=== PATIENT | female | born 1940 | race Caucasian/White ===

== ENCOUNTER 2017-08-06 20:18 | Inpatient (IN) | payer BC, MEDICARE ==
[~2017-08-06] VITALS: Ht 157.5 cm; Wt 64.0 kg
[~2017-08-06 20:18] MED LIST: FLAGYL250 MG PO; LEVAQUIN500 MG PO; LEVOXYL50 MCG PO; LOMOTIL TABLET1 EACH OD; LORTAB 5-500 T1 EACH; NORCO 10-325 T1 EACH PO; PEPCID20 MG; PRIMROSE PO; TOPAMAX25 MG PO; ZOCOR5 MG PO; [UNRECOGNIZED DRUG - OTHER]
[2017-08-06] MEDS ORDERED: SODIUM CHLORIDE 0.9% 1000ML 1,000 ML IV STA (20:37)
[2017-08-06] MEDS ORDERED: ONDANSETRON HCL 4 MG ORAL DISINTEGRATING TAB PO ONE (20:45)
[2017-08-06] MEDS ORDERED: DICYCLOMINE HCL 20 MG/2 ML VIAL IM ONE (20:45)
[2017-08-06] MEDS ORDERED: DIATRIZOATE MEGL/DIATRIZOA SOD 30 ML BTL PO ONE (20:51)
[2017-08-06] MEDS ORDERED: ONDANSETRON HCL INJ 2 MG/ML VIAL IV STA (23:41)
[2017-08-07] MEDS ORDERED: ONDANSETRON HCL 4 MG ORAL DISINTEGRATING TAB ONE
[2017-08-07] MEDS ORDERED: SODIUM CHLORIDE 0.9% 1000ML 1,000 ML ONE (00:38)
[2017-08-07] MEDS ORDERED: SODIUM CHLORIDE 0.9% 1000ML 1,000 ML IV ONE ×2 (01:00→02:45)
--- NOTE | 2017-08-07 01:03 | Diagnostic Imaging Report ---
EXAM: CT Abdomen and Pelvis WITHOUT contrast INDICATION: Small bowel obstruction versus diverticulitis. COMPARISON: None. TECHNIQUE: Abdomen and pelvis were scanned utilizing a multidetector helical scanner from the lung base to the pubic symphysis without administration of IV contrast. Absence of intravenous contrast decreases sensitivity for detection of focal lesions and vascular pathology. Coronal and sagittal reformations were obtained. Routine protocol was performed. IV CONTRAST: None. ORAL CONTRAST: Gastrografin RADIATION DOSE: Total DLP: 257.08 mGy*cm Estimated effective dose: (DLP x 0.015 x size factor) mSv COMPLICATIONS: None FINDINGS: LINES and TUBES: None. LOWER THORAX: Moderate sliding hiatal hernia present. HEPATOBILIARY: No focal hepatic lesions. No biliary ductal dilation. GALLBLADDER: No radio-opaque stones or sludge. No wall thickening. SPLEEN: No splenomegaly. PANCREAS: No focal masses or ductal dilatation. ADRENALS: No adrenal nodules KIDNEYS/URETERS: No hydronephrosis. No cystic or solid mass lesions. No stones. GI TRACT: There is diffuse cerebral differential thickening of the mid, distal transverse colon, descending colon to the level of the sigmoid colon compatible with moderate to severe colitis. There are diverticula within the colon without evidence of diverticulitis. Appendix is not clearly identified. There is however no fat stranding or adenopathy in the right lower quadrant to suggest appendicitis. PELVIC ORGANS/BLADDER: Unremarkable. LYMPH NODES: No lymphadenopathy. VESSELS: There is moderate atherosclerotic disease in the aorta and major arterial branches. PERITONEUM / RETROPERITONEUM: No free air or fluid. BONES: There are degenerative changes in the lumbar spine. SOFT TISSUES: Unremarkable. IMPRESSION: 1. Findings are compatible with left-sided colitis, most likely infectious in the appropriate clinical setting. 2. Sigmoid colon diverticulosis without evidence of diverticulitis. 3. Moderate to large sliding hiatal hernia. Signed by: Dr. Jens Byrd M.D. on 08/07/2017 12:59 AM
[2017-08-07] MEDS ORDERED: ONDANSETRON HCL INJ 2 MG/ML VIAL IV PRN (01:45)
--- OUTSIDE RECORDS SUMMARY | 2017-08-07 01:55 | XMS REPORT ---
Author Author [facility] Address Unknown Phone Unavailable Care Team Providers Care Student Financial Aid Manager Name Role Phone MARIA DOLORES CARNEY Unavailable Unavailable Problems This patient has no known problems. Allergies, Adverse Reactions, Alerts This patient has no known allergies or adverse reactions. Medications This patient has no known medications. Results Test Description Test Time Test Comments Text Results Atomic Results Result Comments CT ABDOMEN/PELVIS WO 2017-08-07 00:49:00 [place] [address] Patient Name: YG FORTUNE MR #: [id number] : 1940 Age/Sex: 76/F Req #: [id number] Adm Physician: Ordered by: GIN HELMS MODELER Report #: [id number] Location: ER Room/Bed: ___ Procedure: CT/CT ABDOMEN/PELVIS WO Exam Date: 08/06/17 Exam Time: 2345 REPORT STATUS: Signed EXAM: CT Abdomen and Pelvis WITHOUT contrast INDICATION: Small bowel obstruction versus diverticulitis. COMPARISON: None. TECHNIQUE: Abdomen and pelvis were scanned utilizing a multidetector helical scanner from the lung base to the pubic symphysis without administration of IV contrast. Absence of intravenous contrast decreases sensitivity for detection of focal lesions and vascular pathology. Coronal and sagittal reformations were obtained. Routine protocol was performed. IV CONTRAST: None. ORAL CONTRAST: Gastrografin RADIATION DOSE: Total DLP: 257.08 mGy*cm Estimated effective dose: (DLP x 0.015 x size factor) mSv COMPLICATIONS: None FINDINGS: LINES and TUBES: None. LOWER THORAX : Moderate sliding hiatal hernia present. HEPATOBILIARY: No focal hepatic lesions. No biliary ductal dilation. GALLBLADDER: No radio-opaque stones or sludge. No wall thickening. SPLEEN: No splenomegaly. PANCREAS: No focal masses or ductal dilatation. ADRENALS: No adrenal nodules KIDNEYS/URETERS: No hydronephrosis. No cystic or solid mass lesions. No stones. GI TRACT: There is diffuse cerebral differential thickening of the mid, distal transverse colon, descending colon to the level of the sigmoid colon compatible with moderate to severe colitis. There are diverticula within the colon without evidence of diverticulitis. Appendix is not clearly identified. There is however no fat stranding or adenopathy in the right lower quadrant to suggest appendicitis. PELVIC ORGANS/BLADDER: Unremarkable. LYMPH NODES: No lymphadenopathy. VESSELS: There is moderate atherosclerotic disease in the aorta and major arterial branches. PERITONEUM / RETROPERITONEUM: No free air or fluid. BONES: There are degenerative changes in the lumbar spine. SOFT TISSUES: Unremarkable. IMPRESSION: 1. Findings are compatible with left-sided colitis , most likely infectious in the appropriate clinical setting. 2. Sigmoid colon diverticulosis without evidence of diverticulitis. 3. Moderate to large sliding hiatal hernia. Signed by: Dr. Jens Byrd M.D. on 08/07/2017 12:59 AM Dictated By: JENS ALSTON MD Transcribed By: MICAELA on 08/07/1758 COPY TO: GIN HELMS NP
[2017-08-07] MEDS ORDERED: LEVOFLOXACIN 500MG/D5W 100ML IV SCH (02:00)
[2017-08-07] MEDS: SODIUM CHLORIDE 0.9% 1000ML 1,000 ML IV SCH ×4 (02:00→20:30)
[2017-08-07] MEDS ORDERED: ACETAMINOPHEN 1000 MG/100 ML IV STA (02:19)
[2017-08-07] MEDS ORDERED: ACETAMINOPHEN 1000 MG/100 ML IV PRN (02:30)
[2017-08-07] MEDS: PIPER-TAZ 3.375 GM 50 ML IV SCH ×4 (03:59→22:17)
[2017-08-07 06:12] LABS: ALANINE AMINOTRANSFERASE 13 IU/L (0-55); BLOOD UREA NITROGEN 15 mg/dL (7-26); BUN/CREATININE RATIO 21 (6-25); CALCIUM 7.3 mg/dL (8.4-10.2); CARBON DIOXIDE 18 mmol/L (22-29); CHLORIDE 111 mmol/L (98-107); EST GLOMERULAR FILTRATION RATE > 60 ML/MIN (60-); GLUCOSE 125 mg/dL (74-118); SODIUM 136 mmol/L (136-145)
[2017-08-07 06:13] LABS: ALBUMIN 2.7 g/dL (3.5-5.0); ALBUMIN/GLOBULIN RATIO 1.2 (0.8-2.0); ALKALINE PHOSPHATASE 56 IU/L (40-150); AMYLASE 71 U/L (25-125); LIPASE 25 U/L (8-78)
[2017-08-07 06:51] LABS: BASOPHILS % 0.1 % (0.0-1.0); EOSINOPHILS % 0.1 % (0.0-6.0); HEMATOCRIT 33.4 % (34.2-44.1); HEMOGLOBIN 10.8 g/dL (12.0-16.0); LYMPHOCYTES # (AUTO) 1.3 (1.0-3.2); MEAN CORPUSCULAR HEMOGLOBIN 30.1 pg (28-32); MEAN CORPUSCULAR HGB CONC 32.3 g/dL (31-35); MONOCYTES % 4.6 % (4.4-11.3); NEUTROPHILS # (AUTO) 9.9 (2.1-6.9); NEUTROPHILS % 83.8 % (38.7-80.0); PLATELET COUNT 293 x10e3/uL (140-360); RED BLOOD COUNT 3.59 x10e6/uL (3.6-5.1); RED CELL DISTRIBUTION WIDTH 14.6 % (11.7-14.4)
[2017-08-07 06:52] LABS: MONOCYTES # (AUTO) 0.6 (0.2-0.8)
[2017-08-07 09:04] LABS: HEMATOCRIT 41.8 % (34.2-44.1); HEMOGLOBIN 13.2 g/dL (12.0-16.0); MEAN CORPUSCULAR HEMOGLOBIN 29.7 pg (28-32); MEAN CORPUSCULAR VOLUME 93.9 fL (81-99); RED BLOOD COUNT 4.45 x10e6/uL (3.6-5.1)
[2017-08-07 09:05] LABS: BASOPHILS % 0.2 % (0.0-1.0); CLARITY,URINE CLEAR (CLEAR); COLOR,URINE YELLOW (YELLOW); EOSINOPHILS # (AUTO) 0.1 (0.0-0.4); EOSINOPHILS % 0.6 % (0.0-6.0); LYMPHOCYTES # (AUTO) 1.6 (1.0-3.2); LYMPHOCYTES % 12.5 % (18.0-39.1); MEAN CORPUSCULAR HGB CONC 31.6 g/dL (31-35); MONOCYTES # (AUTO) 0.6 (0.2-0.8); MONOCYTES % 4.5 % (4.4-11.3); NEUTROPHILS # (AUTO) 10.2 (2.1-6.9); NEUTROPHILS % 81.9 % (38.7-80.0); PLATELET COUNT 289 x10e3/uL (140-360); RED CELL DISTRIBUTION WIDTH 14.7 % (11.7-14.4)
[2017-08-07 09:06] LABS: ANION GAP 14.3 mmol/L (8-16); BACTERIA,URINE FEW /HPF; BILIRUBIN,URINE NEGATIVE (NEGATIVE); BLOOD UREA NITROGEN 26 mg/dL (7-26); CARBON DIOXIDE 21 mmol/L (22-29); CHLORIDE 105 mmol/L (98-107); EPITHELIAL CELLS,URINE MODERATE /LPF; HYALINE CASTS 0-1 (0-1); KETONES,URINE 2+ (NEGATIVE); LEUKOCYTE ESTERASE ,URINE NEGATIVE (NEGATIVE); NITRITE,URINE NEGATIVE (NEGATIVE); POTASSIUM 4.3 mmol/L (3.5-5.1); PROTEIN,URINE DIPSTICK NEGATIVE (NEGATIVE); SODIUM 136 mmol/L (136-145); URINE UROBILINOGEN 0.2 mg/dL (0.2 - 1); WBC,URINE (MAN) 0-5 /HPF (0-5)
[2017-08-07 09:07] LABS: ALANINE AMINOTRANSFERASE 18 IU/L (0-55); BUN/CREATININE RATIO 30 (6-25); CALCIUM 9.3 mg/dL (8.4-10.2); CREATININE, SERUM 0.86 mg/dL (0.57-1.11); EST GLOMERULAR FILTRATION RATE > 60 ML/MIN (60-); GLUCOSE 124 mg/dL (74-118)
[2017-08-07 09:09] LABS: ALBUMIN 3.7 g/dL (3.5-5.0); ALBUMIN/GLOBULIN RATIO 1.2 (0.8-2.0); ALKALINE PHOSPHATASE 65 IU/L (40-150); CREATINE KINASE 85 IU/L (29-168)
[2017-08-07 09:10] LABS: LIPASE 111 U/L (8-78)
[2017-08-07 10:35] VITALS: BP 115/53
[2017-08-07 11:34] VITALS: BP 115/53
[2017-08-07 11:44] VITALS: BP 115/53
[2017-08-07 11:50] VITALS: BP 115/53
[2017-08-07] MEDS ORDERED: HYDROCODONE/APAP 10MG-325MG TAB PO PRN (14:45)
[2017-08-07] MEDS: DIPHENOXYLATE/ATROPINE TAB PO SCH ×2 (15:00→22:00)
[2017-08-07] MEDS: LEVOTHYROXINE SODIUM 50 MCG TAB PO SCH (15:19)
--- NOTE | 2017-08-07 15:24 | History and Physical ---
A 76-year-old female comes in with abdominal pain. HISTORY OF PRESENT ILLNESS: This is Ms. Purcell with a history of colitis, who was in her usual state of health until yesterday. The patient started to have nausea, vomiting and diarrhea, which was bloody. The patient came into the emergency room and was found to have colitis and also hypertension because of dehydration. The patient was admitted to the hospital and started on IV antibiotics. PAST MEDICAL HISTORY: History of hypothyroidism, history of chronic back pain, history of osteoarthritis, history of colitis. MEDICATIONS 1. Lomotil. 2. Hydrocodone. 3. [place] 10 per 325 mg q.6 h. 4. Levaquin 500 mg daily. 5. Levothyroxine 50 mcg daily. ALLERGIES: NKDA. FAMILY HISTORY: Noncontributory. SOCIAL HISTORY: No ETOH. No IV drug abuse. History of smoking in the past. PHYSICAL EXAMINATION GENERAL: The patient is alert and oriented times 3. HEENT: Normocephalic and atraumatic. Eyes are sunken. CV: S1 and S2 normal. Regular rate and rhythm. ABDOMEN: Soft. Mild tenderness in the lower abdomen. Also, tenderness in the suprapubic and the periumbilical area. BACK: Normal. SKIN: Dry. EXTREMITIES: No clubbing. No cyanosis. No edema. NEUROLOGIC: Alert and oriented times 3. She does have weakness. LABS: White count was 12,000 initially, hemoglobin of 13.2, hematocrit 41.8 with a left shift of 10.2 neutrophils. Chemistry: Sodium is 136, potassium 4.3, BUN , glucose is 124. Lipase is 111. Urine showed leukocyte esterase negative and nitrite is negative too. CT scan showed left-sided colitis, most likely infectious in her chronic setting. Sigmoid diverticulosis and moderate large sliding hiatal hernia. ASSESSMENT 1. Colitis. 2. Dehydration. PLAN: has been started. Will restart on her home medications for her hypothyroidism and also pain medicine will be withheld secondary to hypertension. She is on 125 mL of fluids. The patient will also get a PICC line secondary to her dehydration. Further recommendations per clinical course. Also, consult Dr. Zuleta, her advertising operations coordinator. Job#: [id number] JOSE
[2017-08-07 16:00] VITALS: BP 110/60
--- NOTE | 2017-08-07 17:10 | Diagnostic Imaging Report ---
PROCEDURE: A single AP view of the chest. COMPARISON: DX, CHEST SINGLE (PORTABLE), 08/31/2014, 7:37. INDICATIONS: POST RIGHT SIDE PICC LINE FINDINGS: See impression. IMPRESSION: 1. status post placement of right-sided PICC line, with distal tip projecting in the mid SVC. 2. Lungs are grossly clear. No consolidation or effusion. 3. Cardiac mediastinal silhouette is unremarkable. Pulmonary vasculature is normal. 4. No acute bony abnormalities. Fusion hardware is noted in the lower cervical spine. Tr Birch M.D. Dictated by: Tr Birch M.D. on 08/07/2017 at 17:12 Electronically approved by: Tr Birch M.D. on 08/07/2017 at 17:12
[2017-08-07] MEDS: KETOROLAC TROMETHAMINE 30 MG/ML VIAL IV PRN (17:26)
[2017-08-07 20:20] VITALS: BP 95/51
[2017-08-07] MEDS ORDERED: DIPHENOXYLATE/ATROPINE TAB PO SCH (22:00)
[2017-08-08] VITALS (8 sets, daily range): BP systolic 91–131; BP diastolic 44–60
[2017-08-08] MEDS: KETOROLAC TROMETHAMINE 30 MG/ML VIAL IV PRN ×2 (02:56→10:15)
[2017-08-08] MEDS: SODIUM CHLORIDE 0.9% 1000ML 1,000 ML IV SCH ×3 (03:00→18:36)
[2017-08-08] MEDS: PIPER-TAZ 3.375 GM 50 ML IV SCH ×3 (05:22→21:42)
[2017-08-08] MEDS: DIPHENOXYLATE/ATROPINE TAB PO SCH ×3 (05:22→21:42)
[2017-08-08] MEDS: LEVOTHYROXINE SODIUM 50 MCG TAB PO SCH (05:23)
[2017-08-08 05:41] LABS: BASOPHILS % 0.2 % (0.0-1.0); EOSINOPHILS # (AUTO) 0.2 (0.0-0.4); EOSINOPHILS % 2.1 % (0.0-6.0); HEMATOCRIT 33.3 % (34.2-44.1); HEMOGLOBIN 10.8 g/dL (12.0-16.0); LYMPHOCYTES # (AUTO) 2.1 (1.0-3.2); LYMPHOCYTES % 20.1 % (18.0-39.1); MEAN CORPUSCULAR HEMOGLOBIN 29.9 pg (28-32); MEAN CORPUSCULAR HGB CONC 32.4 g/dL (31-35); MEAN CORPUSCULAR VOLUME 92.2 fL (81-99); MONOCYTES # (AUTO) 0.6 (0.2-0.8); MONOCYTES % 5.4 % (4.4-11.3); NEUTROPHILS # (AUTO) 7.6 (2.1-6.9); NEUTROPHILS % 71.9 % (38.7-80.0); PLATELET COUNT 260 x10e3/uL (140-360); RED BLOOD COUNT 3.61 x10e6/uL (3.6-5.1); RED CELL DISTRIBUTION WIDTH 14.9 % (11.7-14.4)
[2017-08-08 06:05] LABS: ALANINE AMINOTRANSFERASE 11 IU/L (0-55); ALBUMIN 2.6 g/dL (3.5-5.0); ALBUMIN/GLOBULIN RATIO 1.1 (0.8-2.0); ALKALINE PHOSPHATASE 54 IU/L (40-150); AMYLASE 35 U/L (25-125); ANION GAP 8.4 mmol/L (8-16); BLOOD UREA NITROGEN 5 mg/dL (7-26); BUN/CREATININE RATIO 7 (6-25); CALCIUM 7.9 mg/dL (8.4-10.2); CARBON DIOXIDE 20 mmol/L (22-29); CHLORIDE 111 mmol/L (98-107); EST GLOMERULAR FILTRATION RATE > 60 ML/MIN (60-); GLUCOSE 87 mg/dL (74-118); LIPASE 10 U/L (8-78); POTASSIUM 3.4 mmol/L (3.5-5.1); SODIUM 136 mmol/L (136-145)
[2017-08-08] MEDS ORDERED: LEVOTHYROXINE SODIUM 50 MCG TAB PO SCH (09:00)
--- NOTE | 2017-08-08 11:55 | Consultation ---
DATE OF CONSULTATION: August 07, 2017 GASTROENTEROLOGY CONSULTATION REASON FOR CONSULT: Acute diarrhea with lower abdominal cramping for 1 day. HISTORY OF PRESENT ILLNESS: A 76-year-old very pleasant white female with a past medical history of chronic back pain, osteoarthritis, who got admitted with a 1-day history of acute onset of several bouts of diarrhea associated with lower abdominal cramping. The patient denies any recent exposure to antibiotics. No travel. Denies eating or drinking any contaminated food or liquid restrictively. She came to the emergency room earlier today. She was noted to be hemodynamically stable. Not orthostatic. Not tachycardic. Blood work revealed mild leukocytosis with white count of 12.51 with some left shift. CT scan of the abdomen showed diffuse colitis. The patient was started empirically on IV antibiotics and IV fluids. She got admitted. GI has been consulted for further evaluation and recommended. She denies any intestinal manifestations, such as ischemia, arthralgia or any oral lesions. REVIEW OF SYSTEMS: A 12-point system reviewed. Symptomatology is limited to GI system. PAST MEDICAL HISTORY: Hypothyroidism, chronic backache, osteoarthritis, history of colitis in the past. PAST SURGICAL HISTORY: She has had a colonoscopy by Dr. Zuleta (my associate) 3 years ago. At that time, she had some polyps removed. As per the patient, the next colonoscopy was advised to get done in 3-5 years. FAMILY HISTORY: Negative for any inflammatory bowel disease. 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 SOCIAL HISTORY: No smoking, alcohol or any illicit drug use. She is a former smoker. Quit smoking in the remote past. ALLERGIES: CEPHALEXIN, LEVOFLOXACIN, METRONIDAZOLE, AND MORPHINE. HOME MEDICATIONS: Lomotil, hydrocodone, [place], and levothyroxine. INPATIENT MEDICATIONS: List reviewed. PHYSICAL EXAMINATION VITAL SIGNS: Temperature 99.8, pulse 60, respirations 18, blood pressure 110/60, oxygen saturation 99% on room air. GENERAL: Not in any acute distress. HEENT: Moist mucous membranes. Anicteric sclerae. No oral lesions. CV: S1 and S2 regular. LUNGS: Bilaterally grossly clear. ABDOMEN: Soft and nondistended. Lower quadrant tenderness on deep palpation without rebound, rigidity or guarding. Bowel sounds hyperactive. EXTREMITIES: Warm. No leg edema. LABS: WBC has come down to 11.84 from 12.51, hemoglobin 10.8, hematocrit 33.4, and platelet count 293,000. Sodium 136, potassium 4, chloride 111, bicarb 18, BUN 15, creatinine 0.7. Liver enzymes normal. Chest x-ray showed right-sided PICC line. Lungs clear. Cardiac as well as mediastinal silhouette unremarkable. Pulmonary vasculature normal. No acute bony abnormalities. Fusion hardware is noted in the lower cervical spine. CT of the abdomen without IV contrast, but oral contrast showed findings compatible with left-sided colitis, most likely infectious in etiology. Sigmoid diverticulosis without diverticulitis. Moderate to large sliding hiatal hernia. IMPRESSION: Acute onset of diarrhea for 1 day. This is infectious until proven otherwise. This is colitis and is self-limiting. PLAN: Stool studies. However, diarrhea has already improved. The patient has not had any bowel movement since this afternoon. Stool studies should include wbcs, culture, C. diff. Supportive care with IV fluids. This colitis seems to be self-limiting. Therefore, would not recommend to give any antibiotics. Elective outpatient colonoscopy if due at this time. I thank Dr. Scott for allowing me to participate in the care of this patient. Job#: [id number] JOSE
[2017-08-09] VITALS (8 sets, daily range): BP systolic 102–132; BP diastolic 51–60
[2017-08-09] MEDS: SODIUM CHLORIDE 0.9% 1000ML 1,000 ML IV SCH ×5 (00:56→20:56)
[2017-08-09] MEDS: LEVOTHYROXINE SODIUM 50 MCG TAB PO SCH (05:44)
[2017-08-09] MEDS: DIPHENOXYLATE/ATROPINE TAB PO SCH ×3 (05:44→21:29)
[2017-08-09] MEDS: PIPER-TAZ 3.375 GM 50 ML IV SCH ×3 (05:44→21:29)
[2017-08-09] MEDS: POTASSIUM CHLORIDE 20 MEQ TAB CR PO SCH (08:00)
[2017-08-09] MEDS ORDERED: ACETAMINOPHEN 325 MG TAB PO PRN (16:30)
[2017-08-09] MEDS: IBUPROFEN 200 MG TAB PO PRN (17:30)
[2017-08-10] VITALS (7 sets, daily range): BP systolic 114–144; BP diastolic 56–63
[2017-08-10] MEDS: SODIUM CHLORIDE 0.9% 1000ML 1,000 ML IV SCH ×2 (03:36→15:31)
[2017-08-10] MEDS: LEVOTHYROXINE SODIUM 50 MCG TAB PO SCH (05:12)
[2017-08-10] MEDS: PIPER-TAZ 3.375 GM 50 ML IV SCH ×3 (05:12→21:17)
[2017-08-10] MEDS: DIPHENOXYLATE/ATROPINE TAB PO SCH ×3 (05:12→21:17)
[2017-08-10] MEDS: IBUPROFEN 200 MG TAB PO PRN (05:13)
[2017-08-10] MEDS: POTASSIUM CHLORIDE 20 MEQ TAB CR PO SCH (07:51)
[2017-08-10] MEDS: KETOROLAC TROMETHAMINE 30 MG/ML VIAL IV PRN (11:21)
[2017-08-11] VITALS: BP 122/58
[2017-08-11] MEDS: SODIUM CHLORIDE 0.9% 1000ML 1,000 ML IV SCH (02:35)
[2017-08-11 04:00] VITALS: BP 115/56
[2017-08-11] MEDS: LEVOTHYROXINE SODIUM 50 MCG TAB PO SCH (05:55)
[2017-08-11] MEDS: PIPER-TAZ 3.375 GM 50 ML IV SCH (05:55)
[2017-08-11] MEDS: DIPHENOXYLATE/ATROPINE TAB PO SCH (05:55)
[2017-08-11 07:48] VITALS: BP 121/59
[2017-08-11 07:48] LABS: BASOPHILS % 0.6 % (0.0-1.0); EOSINOPHILS # (AUTO) 0.4 (0.0-0.4); EOSINOPHILS % 5.1 % (0.0-6.0); HEMATOCRIT 38.4 % (34.2-44.1); HEMOGLOBIN 12.5 g/dL (12.0-16.0); LYMPHOCYTES % 29.4 % (18.0-39.1); MEAN CORPUSCULAR HEMOGLOBIN 29.7 pg (28-32); MEAN CORPUSCULAR HGB CONC 32.6 g/dL (31-35); MEAN CORPUSCULAR VOLUME 91.2 fL (81-99); MONOCYTES # (AUTO) 0.7 (0.2-0.8); MONOCYTES % 10.6 % (4.4-11.3); NEUTROPHILS # (AUTO) 3.7 (2.1-6.9); NEUTROPHILS % 53.7 % (38.7-80.0); PLATELET COUNT 310 x10e3/uL (140-360); RED BLOOD COUNT 4.21 x10e6/uL (3.6-5.1)
[2017-08-11 08:08] LABS: ANION GAP 11.8 mmol/L (8-16); BLOOD UREA NITROGEN 7 mg/dL (7-26); BUN/CREATININE RATIO 10 (6-25); CALCIUM 8.9 mg/dL (8.4-10.2); CARBON DIOXIDE 25 mmol/L (22-29); CHLORIDE 107 mmol/L (98-107); EST GLOMERULAR FILTRATION RATE > 60 ML/MIN (60-); GLUCOSE 90 mg/dL (74-118); POTASSIUM 3.8 mmol/L (3.5-5.1); SODIUM 140 mmol/L (136-145)
[2017-08-11 08:38] VITALS: BP 121/59
[2017-08-11] MEDS: POTASSIUM CHLORIDE 20 MEQ TAB CR PO SCH (09:02)
--- NOTE | 2017-08-11 10:52 | Progress Note ---
DATE: August 11, 2017 SUBJECTIVE: The patient is going to be discharged home today. Diarrhea has resolved. Reports no abdominal pain. No nausea or vomiting. REVIEW OF SYSTEMS GENERAL: No fever or chills. CVS: No chest pain or palpitation. RESPIRATORY: No cough or expectoration. MEDICATIONS: MAR reviewed. PHYSICAL EXAMINATION VITAL SIGNS: Temperature 97.7, pulse 62, respirations 19, blood pressure 121/59, oxygen saturation 94% on room air. GENERAL: Not in any acute distress. HEENT: Moist mucous membrane. Anicteric sclerae. No neck or axillary adenopathy. CVS: S1 and S2 regular. LUNGS: Bilaterally grossly clear. ABDOMEN: Soft, nondistended and nontender. No palpable mass or hernia. Positive bowel sound. EXTREMITIES: Warm. No leg edema. LABS: WBC 6.86, hemoglobin 12.5, hematocrit 38.4, MCV 91.2, and platelet count 310,000. Sodium 140, potassium 3.8, chloride 107, bicarbonate 25, BUN 7, creatinine 0.7. Liver enzymes normal. Stool culture negative. Stool O and P negative. C. difficile toxin negative. Stool lactoferrin positive. IMPRESSION: Gastroenterocolitis. This has resolved. Patient is off antibiotics. White count normalized. From a GI standpoint, the patient can be discharged home. She can follow up with her disc inspector, Dr. Zuleta in 1-2 weeks. Job#: [id number] JOSE
--- NOTE | 2017-09-10 01:49 | Discharge Summary ---
This patient came into the hospital for severe dehydration. The patient came in with abdominal pain, described as 10/10, severity as severe and the patient had laboratory test. The patient had also very low blood pressure. Hypotension was noted. White count was 12.1, segs of 81%. Chemistry showed mild base deficit of 21, mild hypocalcemia, amylase of 187. The patient was severely dehydrated. The patient was kept n.p.o. Fluids were started and the patient was also put on Zosyn 3.375 mg IV q.6 h. The patient IV fluids did improve the patient's BUN, creatinine. Her potassium was 3.4. Initially, her hemoglobin was 10.8. Colitis got better and white count came down to 10.5. Zosyn was continued. The patient was still trending hypotensive for the 1st couple of days with 102/50 with generalized weakness and inability to walk. The patient almost walked out of the bed and fell and so we kept the patient 1 more day with blood pressure of 102/53 and a temperature of 99. Blood culture was negative, O and P was negative and urine cultures were negative, but with the dehydration being severe and hypotensive episodes, the patient was kept inpatient and discharged home after 2 days. Fluids were cut down. The patient's white count had come back to being normal and the hemoglobin normalized too. The patient was discharged home. FINAL DIAGNOSES: 1. Severe dehydration. 2. Hypotension secondary to dehydration and volume depletion. 3. Severe abdominal pain with colitis. For further information look in the chart. For medicines on discharge look in the medical reconciliation sheet. The patient also has a history of mild pancreatitis and CT showed left sided colitis. DIEUDONNE WRIGHT MD Job#: [id number]
== END 2017-08-11 10:21 | disposition home or self-care (01) | DRG 392 ==
LOC: ER 20:18 → ERHOLD 08-07 01:52 → MED/SURG3 08-07 04:38 → EDBEDREQTM 08-07 05:07 → EDBEDREQSVC 08-07 05:07 → MED/SURG2 08-07 09:36
PROVIDERS: ADMIT Family Medicine; ATTEND Family Medicine
PROC: 02HV33Z Insertion of Infusion Device into Superior Vena Cava, Percutaneous Approach (ICD-10-PCS; principal; 2017-08-07)
DX: A09 Infectious gastroenteritis and colitis, unspecified (principal); G89.29 Other chronic pain; E03.9 Hypothyroidism, unspecified; Z79.52 Long term (current) use of systemic steroids; E86.0 Dehydration; K44.9 Diaphragmatic hernia without obstruction or gangrene; K57.30 Diverticulosis of large intestine without perforation or abscess without bleeding; I10 Essential (primary) hypertension; E87.6 Hypokalemia; Z87.891 Personal history of nicotine dependence; M43.22 Fusion of spine, cervical region
CPT/HCPCS: 36415; 36569; 71045; 74176; 80048; 80053; 81001; 82150; 82550; 82553; 83605; 83630; 83690; 83993; 84484; 85025; 87040; 87045; 87086; 87177; 87328; 87493; 99284; J0500; J1885; J1956; J2405; J2543; J7030

== ENCOUNTER 2018-01-30 10:45 | Inpatient (IN) | payer MEDICARE ==
[~2018-01-30] VITALS: Ht 157.5 cm; Wt 62.3 kg
[2018-01-30] MEDS ORDERED: CITRATE OF MAGNESIA 300ML BOTTLE PO ONE ×2 (11:15→16:00)
[2018-01-30] MEDS ORDERED: ASPIRIN 81 MG CHEW TAB PO ONE (11:15)
[2018-01-30] MEDS ORDERED: LACTULOSE SYRUP 20 GM/30 ML UDC PO ONE ×2 (11:15→16:00)
--- NOTE | 2018-01-30 12:55 | NUR ---
PATIENT BROUGHT BACK TO TRIAGE. BLOOD DRAWN FROM PIV PLACED PER EMS
[2018-01-30] MEDS ORDERED: ONDANSETRON HCL INJ 2 MG/ML VIAL IV STA (12:58)
[2018-01-30] MEDS ORDERED: ONDANSETRON HCL INJ 2 MG/ML VIAL ONE (13:00)
--- NOTE | 2018-01-30 13:03 | NUR ---
PATIENT REFUSING LACTULOSE AND MAGCITRATE. STATES, "IM ALREADY CLEANED OUT, I DON'T NEED ANYTHING ELSE TO CLEAN ME OUT". DR. JOSE ROY, SPOKE WITH PATIENT IN TRIAGE
--- NOTE | 2018-01-30 13:22 | Diagnostic Imaging Report ---
EXAM: ABDOMEN-1VIEW (KUB) DATE: 01/30/2018 11:08 AM INDICATION: Abdominal pain COMPARISON: CT scan 08/06/2017 FINDINGS: Nonobstructive bowel gas pattern with a moderate amount of retained feces in the colon. Scattered degenerative change about the bones. No suspicious calcifications are seen. IMPRESSION: Findings which could be due to constipation. Signed by: Dr. Oliverio Bunn M.D. on 01/30/2018 1:18 PM
--- NOTE | 2018-01-30 13:45 | NUR ---
PT MOVED TO ER RM 2 AND INSTRUCTED ON MEDS THAT ARE ORDERED TO BE GIVEN. PT STATED TO ME THAT SHE DID NOT WANT TO DRINK MEDS IN LOBBY BECAUSE SHE DID NOT WANT TO USE A PUBLIC RESTROOM. INFORMED PT ALL RESTROOMS IN ER ARE PUBLIC AND THAT WE COULD BRING IN A BEDSIDE COMMODE. PT UPSET AND STATED SHE DIDN'T WANT TO DO THAT EITHER. INFORMED DR. GARCIA AND PRISCILLA RN PRIMARY NURSE OF THIS.
[2018-01-30 14:39] LABS: ALANINE AMINOTRANSFERASE 9 IU/L (0-55); ALBUMIN 3.7 g/dL (3.5-5.0); ALBUMIN/GLOBULIN RATIO 1.1 (0.8-2.0); ALKALINE PHOSPHATASE 73 IU/L (40-150); ANION GAP 17.1 mmol/L (8-16); BLOOD UREA NITROGEN 19 mg/dL (7-26); BUN/CREATININE RATIO 25 (6-25); CALCIUM 10.1 mg/dL (8.4-10.2); CARBON DIOXIDE 23 mmol/L (22-29); CHLORIDE 106 mmol/L (98-107); CREATINE KINASE 41 IU/L (29-168); CREATININE, SERUM 0.75 mg/dL (0.57-1.11); EST GLOMERULAR FILTRATION RATE > 60 ML/MIN (60-); GLUCOSE 101 mg/dL (74-118); POTASSIUM 4.1 mmol/L (3.5-5.1); SODIUM 142 mmol/L (136-145)
[2018-01-30 15:23] LABS: BASOPHILS % 0.2 % (0.0-1.0); EOSINOPHILS % 0.1 % (0.0-6.0); HEMATOCRIT 45.3 % (34.2-44.1); HEMOGLOBIN 14.8 g/dL (12.0-16.0); LYMPHOCYTES # (AUTO) 1.4 (1.0-3.2); LYMPHOCYTES % 10.9 % (18.0-39.1); MEAN CORPUSCULAR HEMOGLOBIN 29.9 pg (28-32); MEAN CORPUSCULAR HGB CONC 32.7 g/dL (31-35); MEAN CORPUSCULAR VOLUME 91.5 fL (81-99); MONOCYTES # (AUTO) 0.7 (0.2-0.8); MONOCYTES % 5.2 % (4.4-11.3); NEUTROPHILS # (AUTO) 10.9 (2.1-6.9); NEUTROPHILS % 83.3 % (38.7-80.0); PLATELET COUNT 337 x10e3/uL (140-360); RED BLOOD COUNT 4.95 x10e6/uL (3.6-5.1); RED CELL DISTRIBUTION WIDTH 13.2 % (11.7-14.4)
[2018-01-30] MEDS ORDERED: SODIUM CHLORIDE 0.9% 1000ML 1,000 ML IV SCH (16:00)
--- NOTE | 2018-01-30 16:15 | NUR ---
MEDICATED PT ORDERED. PT SITTING UP IN BED DRINKING MAG CITRATE AND TOLERATING WELL.
[2018-01-30] MEDS ORDERED: METOCLOPRAMIDE HCL 10 MG/2ML VIAL ONE (18:39)
[2018-01-30] MEDS ORDERED: METOCLOPRAMIDE HCL 10 MG/2ML VIAL IV ONE (18:45)
--- NOTE | 2018-01-30 20:15 | Diagnostic Imaging Report ---
EXAM: CT Abdomen and Pelvis WITHOUT contrast INDICATION: ^ABD PAIN ^[id number] ^[id number] COMPARISON: CT dated 08/06/2017 TECHNIQUE: Abdomen and pelvis were scanned utilizing a multidetector helical scanner from the lung base to the pubic symphysis without administration of IV contrast. Absence of intravenous contrast decreases sensitivity for detection of focal lesions and vascular pathology. Coronal and sagittal reformations were obtained. Routine protocol was performed. IV CONTRAST: None ORAL CONTRAST: Water COMPLICATIONS: None RADIATION DOSE: Total DLP: 291.34 mGy*cm Estimated effective dose: (DLP x 0.015 x size factor) mSv CTDIvol has been reviewed. It is below the limits set by the Radiation Protocol Committee (RPC). FINDINGS: LINES and TUBES: None. LOWER THORAX: Unremarkable HEPATOBILIARY: Unenhanced liver is unremarkable. No biliary ductal dilation. GALLBLADDER: No radio-opaque stones or sludge. No wall thickening. SPLEEN: No splenomegaly. PANCREAS: No focal masses or ductal dilatation. ADRENALS: No adrenal nodules KIDNEYS/URETERS: No hydronephrosis. Limited for evaluation of renal parenchyma without intravenous contrast. No stones. GI TRACT: No abnormal distention, wall thickening, or evidence of bowel obstruction. Sigmoid diverticulosis. There is mild fat stranding along the descending colon in the left lower quadrant (series 2, image 50). Appendix is not visualized. Moderate size hiatal hernia. PELVIC ORGANS/BLADDER: Unremarkable. Hysterectomy. LYMPH NODES: No lymphadenopathy. VESSELS: Unremarkable. PERITONEUM / RETROPERITONEUM: No free air or fluid. BONES: Mild lumbar spine scoliosis with multilevel advanced degenerative changes. Grade 1 anterolisthesis of relation to L5. SOFT TISSUES: Unremarkable. IMPRESSION: 1. Mild fat stranding along the colon in left lower quadrant, concerning for mild left colitis. 2. Moderate size hiatal hernia. Signed by: Dr. Jamie Canchola MD on 01/30/2018 8:11 PM
[2018-01-30] MEDS ORDERED: SODIUM CHLORIDE 0.9% 1000ML 1,000 ML IV ONE (22:15)
[2018-01-30] MEDS ORDERED: HYDROMORPHONE 1MG/1ML INJ IV PRN (22:15)
[2018-01-30] MEDS ORDERED: DIPHENHYDRAMINE HCL INJ 50 MG/ML VIAL ONE (22:30)
[2018-01-30] MEDS: HYDROMORPHONE 2MG/ML 2 MG/ML ML IV PRN (22:37)
[2018-01-30] MEDS: PIPER-TAZ 3.375 GM 50 ML IV SCH (22:37)
[2018-01-30] MEDS: ONDANSETRON HCL INJ 2 MG/ML VIAL IV PRN (22:37)
[2018-01-30] MEDS ORDERED: LEVOTHYROXINE75 MCG PO (23:32)
[2018-01-30] MEDS ORDERED: TEMAZEPAM15 MG PO (23:32)
[2018-01-30] MEDS ORDERED: SUMATRIPTAN SUC50 MG PO (23:32)
[2018-01-31] VITALS (8 sets, daily range): BP systolic 97–140; BP diastolic 52–97
[2018-01-31] MEDS ORDERED: DIPHENHYDRAMINE HCL INJ 50 MG/ML VIAL IV ONE
--- NOTE | 2018-01-31 00:30 | NUR ---
PT ARRIVED @ THE UNIT FROM ER IN A STRETCHER WITH C/O ABD.PAIN.AAOX4.AMBULATORY.ASSESSMENT DONE.NO RESP.DISTRESS.PAIN VOICED @ L.ABDOMEN 07/10. PER REPORT IS AWARE OF THE CONSULTATION.ORIENTED THE PT TO THE UNIT.BED LOCKED AND IN LOWEST POSITION.BED ALARM ON.INSTRUCTED THE PT TO CALL NEEDED.
[2018-01-31] MEDS: HYDROMORPHONE 2MG/ML 2 MG/ML ML IV PRN ×2 (02:51→13:04)
[2018-01-31] MEDS: ONDANSETRON HCL INJ 2 MG/ML VIAL IV PRN ×3 (02:51→13:04)
[2018-01-31] MEDS: PIPER-TAZ 3.375 GM 50 ML IV SCH ×4 (04:12→21:45)
[2018-01-31] MEDS ORDERED: DIPHENHYDRAMINE HCL INJ 50 MG/ML VIAL IV PRN (06:45)
--- NOTE | 2018-01-31 06:50 | NUR ---
REPORT GIVEN TO THE ONCOMING RN.WALKING ROUNDS DONE.STABLE CONDITION.
[2018-01-31] MEDS: KETOROLAC TROMETHAMINE 30 MG/ML VIAL IV PRN (07:21)
[2018-01-31 07:23] LABS: BASOPHILS % 0.2 % (0.0-1.0); EOSINOPHILS % 0.3 % (0.0-6.0); HEMATOCRIT 39.8 % (34.2-44.1); HEMOGLOBIN 12.8 g/dL (12.0-16.0); LYMPHOCYTES % 22.1 % (18.0-39.1); MEAN CORPUSCULAR HEMOGLOBIN 29.9 pg (28-32); MEAN CORPUSCULAR HGB CONC 32.2 g/dL (31-35); MONOCYTES # (AUTO) 0.9 (0.2-0.8); MONOCYTES % 6.6 % (4.4-11.3); NEUTROPHILS # (AUTO) 9.6 (2.1-6.9); NEUTROPHILS % 70.4 % (38.7-80.0); PLATELET COUNT 339 x10e3/uL (140-360); RED BLOOD COUNT 4.28 x10e6/uL (3.6-5.1); RED CELL DISTRIBUTION WIDTH 13.5 % (11.7-14.4)
--- NOTE | 2018-01-31 07:25 | NUR ---
Received patient this morning, c/o nausea and epigastric pain, VSS, medicated with zofran, reported to attending who is going rounds at this time and to renew home meds and orders in place for Protonix, will monitor
[2018-01-31] MEDS: LEVOTHYROXINE SODIUM 75 MCG TAB PO SCH ×2 (07:30→08:14)
[2018-01-31 08:02] LABS: ALANINE AMINOTRANSFERASE 8 IU/L (0-55); ALKALINE PHOSPHATASE 59 IU/L (40-150); ANION GAP 13.9 mmol/L (8-16); BLOOD UREA NITROGEN 11 mg/dL (7-26); BUN/CREATININE RATIO 13 (6-25); CALCIUM 8.6 mg/dL (8.4-10.2); CARBON DIOXIDE 23 mmol/L (22-29); CHLORIDE 104 mmol/L (98-107); CREATININE, SERUM 0.82 mg/dL (0.57-1.11); EST GLOMERULAR FILTRATION RATE > 60 ML/MIN (60-); GLUCOSE 95 mg/dL (74-118); POTASSIUM 3.9 mmol/L (3.5-5.1); SODIUM 137 mmol/L (136-145)
[2018-01-31] MEDS: PANTOPRAZOLE 40 MG 10ML VIAL IV SCH (08:14)
--- NOTE | 2018-01-31 08:41 | History and Physical ---
REASON FOR ADMISSION: This patient comes in with abdominal pain and cramping. HISTORY OF PRESENT ILLNESS: This is Ms. Shira Purcell with a history of colitis in the past, was in her usual state of health until the morning. The patient woke up and had some abdominal cramping. She did ate some pineapple with some cream cheese and had diarrhea. After that, the patient continued to have diarrhea with cramping and abdominal pain. It was described as 10/10 in intensity and radiating to the back and the patient came to the emergency room, was given IV fluids. CT scan done, showed colitis and the patient admitted for antibiotic treatment, IV fluids, and also control of diarrhea. PAST MEDICAL HISTORY: History of hypothyroidism, history of migraines, history of insomnia, history of osteoarthritis, and history of hypertension. MEDICATIONS: Medicines she takes at home are; 1. Levothyroxine 75 mcg daily. 2. Sumatriptan 50 mg as needed. 3. Temazepam 15 mg as needed. SURGICAL HISTORY: History of partial hysterectomy, otherwise negative. REVIEW OF SYSTEMS: Negative for chest pain. No shortness of breath. Positive for some nausea. No vomiting. Positive for diarrhea. No constipation. No rectal bleeding. No hematochezia. No hematemesis. No blurry vision. No diplopia. No headache. SOCIAL HISTORY: No ETOH. No IV drug abuse. There is no history of smoking either. ALLERGIES: THE PATIENT IS ALLERGIC TO LEVAQUIN, METRONIDAZOLE, CEPHALEXIN, AND MORPHINE. PHYSICAL EXAMINATION GENERAL: Patient is alert and oriented x3, complains of some pruritus itching. Does complain of some cramping at this time. VITAL SIGNS: Temperature is 97.0, pulse of 83, blood pressure is 113/52, respirations of 20, SpO2 of 20. The patient is on Zosyn going at every 6 hours and IV fluids at 70 mL an hour. HEENT: Normocephalic, atraumatic. Pupils are reactive to light and accommodation. NECK: No JVD present. CVS: S1 and S2 normal. Regular rate and rhythm. ABDOMEN: Tender in the left lower quadrant. EXTREMITIES: No clubbing. No cyanosis. No edema. MUSCULOSKELETAL: Positive for arthritic changes throughout the entire joint system. LABORATORY VALUES: Initial sodium was 142, potassium was 4.1, BUN of 19, and creatinine of 0.75. White count was 13,000, hemoglobin 14.8, and hematocrit of 45.3. T bili was 0.3. IMAGING STUDIES: CT scan shows mild fat stranding along the colon in the left lower quadrant concerning for mild left colitis, moderate-sized hiatal hernia. ASSESSMENT 1. Colitis. 2. Abdominal pain. 3. Abdominal cramping. 4. Leukocytosis. PLAN: To continue patient on IV fluids. Patient is on Zosyn 3.375 q.6 hours, we will continue that. Pain control has been given by hydromorphone 0.5 mg q.6 hours and Tapazole for GI prophylaxis and also Zosyn for nausea. For the itching, we will give her some Benadryl and also Toradol if needed for pain control in addition to the hydromorphone. Further recommendations per clinical course. Dr. Carlos Rose has been consulted for GI. We will continue to monitor the patient and check her labs in the morning too. Job#: [id number] ASHLEY
--- NOTE | 2018-01-31 09:10 | NUR ---
Patient to bathroom and had large hematochezia, notifed Dr. Corral while still here and patient will have colonoscopy on Friday.
--- NOTE | 2018-01-31 09:28 | NUR ---
Consult to Dr. Corral and is here to see patient and will have possible colonoscopy on Friday
--- NOTE | 2018-01-31 09:42 | NUR ---
Rounds by Dr. Corral and orders to complete consent for Colonoscopy and start E-lyte 4000ml protocol tomorrow 02/01. Will follow
[2018-01-31] MEDS: SODIUM CHLORIDE 0.9% 1000ML 1,000 ML IV SCH ×2 (10:30→21:44)
[2018-01-31] MEDS ORDERED: SODIUM CHLORIDE 0.9% 1000ML 1,000 ML IV SCH (11:00)
--- NOTE | 2018-01-31 11:00 | NUR ---
Patient to bathroom and had another loose bloody stool, c/o feels like have a fever, checked temp and 97.3, BP low at 89/49, reported to attending and orders in place for lactic acid level and to bolus 1000mls and orders in place.
--- NOTE | 2018-01-31 12:33 | Consultation ---
DATE OF CONSULTATION: January 31, 2018 HISTORY: This is a 77-year-old who has a history of hypothyroidism, history of migraine, history of hypertension, presented to the hospital because of significant pain, which mainly is in the left lower quadrant area and described as cramping in nature, followed by some diarrhea and rectal bleeding. She said that she was having some constipations prior to the episodes. She has apparently similar episodes about 6 months or so ago and at that time she also had left-sided colitis again. Her workup at this time; she had leukocytosis, WBC about 13 and also CAT scan, which shows left-sided colitis again and moderate sized hiatal hernia. She did have some nausea, but no vomiting. OTHER MEDICAL PROBLEM: Significant for history of hypothyroidism, history of migraine, history of insomnia, history of muscle atrophy, history of hypertension. MEDICATIONS: At home including levothyroxine, sumatriptan, and temazepam. ALLERGIES: LEVAQUIN, FLAGYL, CEPHALEXIN, AND MORPHINE. SOCIAL HISTORY: No alcohol use. FAMILY HISTORY: Noncontributory. REVIEW OF SYSTEMS: Denies any chest pain. At this point, denies shortness of breath. Denies any dysphagia or odynophagia. Denies any dysuria, hematuria, or any syncopal episode. EXAM GENERAL: Patient is awake, alert, appeared to be stable, not in acute distress at this point. VITAL SIGNS: Afebrile currently with stable vital signs. HEAD, EYES, EARS, NOSE, AND THROAT: Normocephalic, atraumatic. Sclerae are anicteric NECK: Supple. HEART: Irregular. ABDOMEN: Soft. There is tenderness in the left upper quadrant. There is no rebound or mass. EXTREMITIES: No clubbing. LAB VALUES: Today, CMP is normal. WBC of 13.56, hemoglobin of 12.8. CAT scan shows evidence of left-sided colitis. IMPRESSION 1. Abdominal pain. Patient also had some bloody diarrhea and colitis with possibility of ischemic colitis. 2. History of chronic constipation. 3. History of hypothyroidism. RECOMMENDATIONS: Continue on antibiotic for now. Follow labs. We will proceed with colonoscopy probably on Friday and stay with liquid diet. Job#: [id number] MIGUEL ANGEL cc:DR. DIEUDONNE WRIGHT
--- NOTE | 2018-01-31 13:19 | NUR ---
CASE MANAGEMENT INITIAL ASSESSMENT Tool Grinding Machine Operator to bedside to discuss plan of care with patient/family. CM/SW role and care transitions discussed. Anticipated discharge plan discussed along with duration of care. CM/SW discussed patients right to make decisions in care. CM/SW work hours given. Patient lives: ALONE; APT ON FIRST FLOOR Admit/Transfer: FROM HOME TO THE ER POA/Emergency contact: SISTER; JAMAR DIEHL @ [phone] Current/Previous Home Health: NONE PCP/Follow-up Care: DR. WRIGHT; ATTENDING. CLAY IS OUTPT GI DOC; FOLLOWED BY MIKA AT [facility] Current/Previous DME: NONE Other Services: NONE Employment Status: RETIRED FROM [employer] Areas of Concerns: STATES HER INSURANCE DENIED HER LAST ADMISSION. STATES DR. WRIGHT APPEALED, BUT STILL REFUSED TO PAY BILL. STATES SOCIAL SECURITY SENT HER A LETTER STATING THE INSURANCE SHOULD COVER HER LAST STAY, BUT THEY MAY STILL HAVE TO APPEAL. Referral Needs: NONE Education Needs: DISCUSSED APPEALS PROCESS IMM/CORRALES given and signed (if applicable): PT TO BE CHANGED TO INPT. Goal for discharge: FIND OUT WHAT'S GOING ON W HER COLON. PT HAVING BRIGHT RED BLOOD FROM RECTUM. COLONOSCOPY SCHEDULED 02/02/18 CM/SW left business card at the bedside with contact information. Name and number was also written on the patients whiteboard. Patient verbalized understanding of discussion. CM will follow-up with ongoing discharge and transition of care needs.
--- NOTE | 2018-01-31 13:40 | NUR ---
Orders in place from attending to switch patient from OBs to inpatient.
--- NOTE | 2018-01-31 14:00 | NUR ---
Lactic acid level reported to MD and no orders
--- NOTE | 2018-01-31 20:09 | NUR ---
SPOKE TO DR. WRIGHT REGARDING PT TEMP AND C/O MIGRAINE. NEW ORDERS RCV. MD ALSO AWARE OF LACTIC ACID. MD ORDERED TO INCREASE IVF TO 120 MLS/HR, CBC AND BMP IN THE MORNING.
[2018-01-31] MEDS ORDERED: ACETAMINOPHEN 325 MG TAB PO PRN (20:15)
[2018-01-31] MEDS ORDERED: SUMATRIPTAN SUCCINATE 50 MG PO PRN (20:15)
[2018-01-31] MEDS: TEMAZEPAM 15 MG CAP PO SCH (21:00)
[2018-01-31] MEDS: SUMATRIPTAN SUCCINATE 25 MG TAB PO PRN (21:45)
[2018-02-01] VITALS (8 sets, daily range): BP systolic 95–128; BP diastolic 46–59
[2018-02-01] MEDS: PIPER-TAZ 3.375 GM 50 ML IV SCH ×4 (04:00→21:56)
[2018-02-01] MEDS: KETOROLAC TROMETHAMINE 30 MG/ML VIAL IV PRN (05:02)
[2018-02-01] MEDS: LEVOTHYROXINE SODIUM 75 MCG TAB PO SCH (05:31)
[2018-02-01 05:51] LABS: BASOPHILS # (AUTO) 0.1 (0.0-0.1); BASOPHILS % 0.3 % (0.0-1.0); EOSINOPHILS # (AUTO) 0.4 (0.0-0.4); EOSINOPHILS % 2.4 % (0.0-6.0); HEMATOCRIT 38.1 % (34.2-44.1); LYMPHOCYTES # (AUTO) 3.4 (1.0-3.2); LYMPHOCYTES % 22.8 % (18.0-39.1); MEAN CORPUSCULAR HEMOGLOBIN 29.5 pg (28-32); MEAN CORPUSCULAR HGB CONC 31.5 g/dL (31-35); MEAN CORPUSCULAR VOLUME 93.6 fL (81-99); MONOCYTES # (AUTO) 0.9 (0.2-0.8); MONOCYTES % 6.1 % (4.4-11.3); NEUTROPHILS # (AUTO) 10.2 (2.1-6.9); NEUTROPHILS % 67.9 % (38.7-80.0); PLATELET COUNT 300 x10e3/uL (140-360); RED BLOOD COUNT 4.07 x10e6/uL (3.6-5.1); RED CELL DISTRIBUTION WIDTH 13.8 % (11.7-14.4)
--- NOTE | 2018-02-01 05:55 | NUR ---
DR. WRIGHT DOING HIS ROUNDS. INFORMED MD REGARDING PT C/O RINGING IN EARS AFTER TAKING TYLENOL. NEW ORDER RCV.
[2018-02-01] MEDS ORDERED: IBUPROFEN 200 MG TAB PO PRN (06:00)
[2018-02-01 06:28] LABS: ANION GAP 8.7 mmol/L (8-16); BLOOD UREA NITROGEN 5 mg/dL (7-26); BUN/CREATININE RATIO 6 (6-25); CALCIUM 8.4 mg/dL (8.4-10.2); CARBON DIOXIDE 23 mmol/L (22-29); CHLORIDE 115 mmol/L (98-107); CREATININE, SERUM 0.87 mg/dL (0.57-1.11); EST GLOMERULAR FILTRATION RATE > 60 ML/MIN (60-); GLUCOSE 96 mg/dL (74-118); POTASSIUM 3.7 mmol/L (3.5-5.1); SODIUM 143 mmol/L (136-145)
[2018-02-01] MEDS: SODIUM CHLORIDE 0.9% 1000ML 1,000 ML IV SCH ×3 (06:35→23:37)
--- NOTE | 2018-02-01 06:42 | Progress Note ---
DATE: February 01, 2018 SUBJECTIVE: Patient comes with abdominal pain, diagnosed with colitis and possible ischemic colitis. She had a consult with Dr. Corral yesterday, possible thought of ischemic colitis. Patient also had low blood pressures, had to give her 1 liter of bolus yesterday and currently blood pressure is 96/51. Fluids are running at about 125 mL/hour. Patient is currently on Zosyn and fluids as mentioned and regular medications of levothyroxine and hydromorphone for pain. OBJECTIVE VITAL SIGNS: T-max 101.2, pulse of 64, blood pressure is 96/51, and SpO2 of 95%. GENERAL: Patient is alert and oriented x3, in pain. HEENT: Normocephalic, atraumatic. NECK: No JVD present. LUNGS: Clear to auscultation bilaterally. CARDIOVASCULAR: S1 and S2 normal. ABDOMEN: Tender in the left lower quadrant. No rebound tenderness. LABS: Pending for today, but yesterday's patient's lactic acid was 21.7 concerning sepsis. ASSESSMENT 1. Colitis, probably infectious versus ischemic colitis. I will continue with the antibiotics. She is on Zosyn right now. 2. Febrile illness. Continue with Tylenol or Motrin. 3. Hypertension from sepsis: Continue with IV fluids resuscitation and also antibiotics. For further information, look into the chart. Patient is currently proceeding for a colonoscopy tomorrow. Job#: [id number] JAYASHREE
--- NOTE | 2018-02-01 06:42 | NUR ---
INFORMED DR. WRIGHT OF WBC RESULT. NEW ORDER RCV FOR NORMAL SALINE 500ML BOLUS.
[2018-02-01] MEDS ORDERED: SODIUM CHLORIDE 0.9% 500ML 500 ML IV STA (06:44)
[2018-02-01] MEDS: PANTOPRAZOLE 40 MG 10ML VIAL IV SCH (07:50)
[2018-02-01] MEDS ORDERED: PEG (High)/E-LYTE SOLN 4,000 ML BTL PO NR (09:45)
[2018-02-01] MEDS ORDERED: BISACODYL 5 MG TAB EC PO NR (09:45)
[2018-02-01] MEDS: SUMATRIPTAN SUCCINATE 25 MG TAB PO PRN ×2 (10:10→17:29)
[2018-02-01] MEDS ORDERED: SODIUM CHLORIDE 0.9% 1000ML 1,000 ML IV SCH (11:00)
[2018-02-01] MEDS: TEMAZEPAM 15 MG CAP PO SCH (21:00)
[2018-02-02] VITALS (7 sets, daily range): BP systolic 101–127; BP diastolic 51–59
[2018-02-02] MEDS: LEVOTHYROXINE SODIUM 75 MCG TAB PO SCH (03:44)
[2018-02-02] MEDS: PIPER-TAZ 3.375 GM 50 ML IV SCH ×4 (03:44→21:07)
[2018-02-02] MEDS: SUMATRIPTAN SUCCINATE 25 MG TAB PO PRN (03:53)
[2018-02-02 05:42] LABS: BASOPHILS % 0.3 % (0.0-1.0); EOSINOPHILS # (AUTO) 0.5 (0.0-0.4); HEMATOCRIT 38.9 % (34.2-44.1); HEMOGLOBIN 12.8 g/dL (12.0-16.0); LYMPHOCYTES # (AUTO) 2.5 (1.0-3.2); LYMPHOCYTES % 22.1 % (18.0-39.1); MEAN CORPUSCULAR HGB CONC 32.9 g/dL (31-35); MEAN CORPUSCULAR VOLUME 91.3 fL (81-99); MONOCYTES # (AUTO) 0.7 (0.2-0.8); MONOCYTES % 6.3 % (4.4-11.3); NEUTROPHILS # (AUTO) 7.7 (2.1-6.9); PLATELET COUNT 293 x10e3/uL (140-360); RED BLOOD COUNT 4.26 x10e6/uL (3.6-5.1); RED CELL DISTRIBUTION WIDTH 13.5 % (11.7-14.4)
[2018-02-02 06:04] LABS: ANION GAP 12.3 mmol/L (8-16); BLOOD UREA NITROGEN < 5 mg/dL (7-26); BUN/CREATININE RATIO 7 (6-25); CALCIUM 8.9 mg/dL (8.4-10.2); CARBON DIOXIDE 24 mmol/L (22-29); CHLORIDE 111 mmol/L (98-107); CREATININE, SERUM 0.74 mg/dL (0.57-1.11); EST GLOMERULAR FILTRATION RATE > 60 ML/MIN (60-); GLUCOSE 86 mg/dL (74-118); POTASSIUM 3.3 mmol/L (3.5-5.1); SODIUM 144 mmol/L (136-145)
[2018-02-02] MEDS: SODIUM CHLORIDE 0.9% 1000ML 1,000 ML IV SCH ×3 (06:20→21:09)
--- NOTE | 2018-02-02 07:13 | Progress Note ---
DATE: February 02, 2018 The patient is here for colitis, sepsis and hypertension. The patient is doing better today. Had GoLYTELY to clean her out. Will have a colonoscopy today and scheduled for that. Currently, the patient is on Zosyn for sepsis and for colitis. Ibuprofen for pain control. The patient is also getting levothyroxine as needed and hydromorphone as needed for pain control. The patient also continues to have headache for which she gets sumatriptan for. OBJECTIVE VITAL SIGNS: Temperature is 99.2, T-max of 100, pulse of 80, respirations 20, blood pressure is 120/58, and pulse ox 99%. HEENT: Normocephalic and atraumatic. Pupils are reactive to light and accommodation. CV: S1 and S2 normal. Regular rate and rhythm. LUNGS: Clear to auscultation bilaterally. ABDOMEN: Tender in the left lower quadrant. No rebound. No surgical belly. EXTREMITIES: No clubbing. No cyanosis. No edema. LABORATORY VALUES: Today's white count has come down to 11,000 compared to yesterday at 15,000 still with a left shift of 7.7. Chemistry: Lactic acid was 21.7 on January 31, 2018. Potassium is 3.3, chloride 111 and creatinine 0.74. No further imaging studies have been done. ASSESSMENT 1. Colitis: Differential between infectious colitis versus ischemic colitis. The patient is going to have a colonoscopy today. Will continue with intravenous antibiotics at this time. 2. Sepsis: Currently, on antibiotics. Continue with the fluids and fluid resuscitation. 3. Hypertension, better. 4. History of hypothyroidism: Continue with hypothyroid medications. 5. Headache: Continue with sumatriptan as needed. Further recommendations depending on colonoscopy. The patient is scheduled for colonoscopy this morning. Job#: [id number] NM
--- NOTE | 2018-02-02 08:30 | NUR ---
ASSISTED TO GET OOB, BRUSH TEETH, CHANGE LINENS, STANDBY ASSIST BACK TO BED, CALL LIGHT WITHIN REACH Addendum: 02/02/18 at 1504 by Shavonne Bruce RN EMPTIED BS COMMODE, LIQUID STOOL NOTED CLEAR WITH GREEN SEDIMENT
[2018-02-02] MEDS: PANTOPRAZOLE 40 MG 10ML VIAL IV SCH (10:16)
--- NOTE | 2018-02-02 14:12 | NUR ---
WHEELED OFF UNIT VIA BED FOR COLONOSCOPY, NO CHANGE IN CONDITION, FAMILY AT SIDE
[2018-02-02] MEDS ORDERED: METOCLOPRAMIDE HCL 10 MG/2ML VIAL ONE (15:36)
--- NOTE | 2018-02-02 16:28 | NUR ---
BACK IN ROOM VIA BED, AAX3, RA, INTERMITTENT PAIN "GAS", CALL LIGHT WITHIN REACH
[2018-02-02] MEDS ORDERED: PROPOFOL IV EMULSION 10 MG/ML 20 ML VIAL ONE (18:42)
[2018-02-02] MEDS: TEMAZEPAM 15 MG CAP PO SCH (21:07)
[2018-02-03] VITALS (9 sets, daily range): BP systolic 107–136; BP diastolic 51–65
[2018-02-03] MEDS: SODIUM CHLORIDE 0.9% 1000ML 1,000 ML IV SCH ×3 (02:56→20:53)
[2018-02-03] MEDS: PIPER-TAZ 3.375 GM 50 ML IV SCH ×4 (04:02→20:53)
[2018-02-03] MEDS: LEVOTHYROXINE SODIUM 75 MCG TAB PO SCH (05:47)
[2018-02-03 06:04] LABS: BASOPHILS % 0.5 % (0.0-1.0); EOSINOPHILS # (AUTO) 0.4 (0.0-0.4); EOSINOPHILS % 5.3 % (0.0-6.0); HEMATOCRIT 36.2 % (34.2-44.1); LYMPHOCYTES # (AUTO) 2.4 (1.0-3.2); LYMPHOCYTES % 30.3 % (18.0-39.1); MEAN CORPUSCULAR HEMOGLOBIN 30.1 pg (28-32); MEAN CORPUSCULAR HGB CONC 33.1 g/dL (31-35); MEAN CORPUSCULAR VOLUME 90.7 fL (81-99); MONOCYTES # (AUTO) 0.7 (0.2-0.8); MONOCYTES % 8.5 % (4.4-11.3); NEUTROPHILS # (AUTO) 4.4 (2.1-6.9); PLATELET COUNT 306 x10e3/uL (140-360); RED BLOOD COUNT 3.99 x10e6/uL (3.6-5.1); RED CELL DISTRIBUTION WIDTH 13.5 % (11.7-14.4)
[2018-02-03 06:38] LABS: ANION GAP 12.2 mmol/L (8-16); BLOOD UREA NITROGEN 6 mg/dL (7-26); BUN/CREATININE RATIO 8 (6-25); CALCIUM 8.4 mg/dL (8.4-10.2); CARBON DIOXIDE 23 mmol/L (22-29); CHLORIDE 110 mmol/L (98-107); CREATININE, SERUM 0.76 mg/dL (0.57-1.11); EST GLOMERULAR FILTRATION RATE > 60 ML/MIN (60-); GLUCOSE 83 mg/dL (74-118); POTASSIUM 3.2 mmol/L (3.5-5.1); SODIUM 142 mmol/L (136-145)
--- NOTE | 2018-02-03 07:29 | Progress Note ---
DATE: February 03, 2018 Patient is status post colonoscopy. Finding of ischemic colitis discussed with Dr. Corral. Currently, able to tolerate a soft GI diet. Will continue with that. OBJECTIVE VITALS: Today, temperature is 99.3, pulse of 79, respiration of 18, pulse ox of 97% on room air. HEENT: Normocephalic, atraumatic. Pupils are reactive to light and accommodation. CVS: S1, S2 normal. Regular rate, rhythm. ABDOMEN: Less tender in the left lower quadrant. EXTREMITIES: No clubbing, no cyanosis, no edema. Changes of arthritis present. LABORATORY VALUES: Today, white count is down to 7.99, hemoglobin is 12.2, and hematocrit of 36.2. Chemistries are potassium of 3.2, chloride of 110, and sodium of 142. ASSESSMENT 1. Ischemic colitis. Patient is currently going to go up to soft gastrointestinal diet and tomorrow, probably a complete diet. If tolerating, the patient may be sent home. 2. Hyperkalemia. Replace potassium. 3. Sepsis, resolved. Will continue monitor the patient. Further recommendations per clinical course. Possible discharge tomorrow. Job#: [id number]
[2018-02-03] MEDS: PANTOPRAZOLE 40 MG 10ML VIAL IV SCH (09:45)
--- NOTE | 2018-02-03 12:08 | NUR ---
IMM SIGNED AND ON CHART COPY TO PT PT PLANS ON GOING HOME TOMORROW NO CONCERNS ABOUT DISCHARGE
--- NOTE | 2018-02-03 13:00 | NUR ---
OOB TO BR WITH STANDBY ASSIST, STANDBY ASSIST BACK TO BED, CALL LIGHT WITHIN REACH
[2018-02-03] MEDS ORDERED: LACTATED RINGER'S 1,000 ML ONE (13:49)
--- NOTE | 2018-02-03 18:51 | NUR ---
NO CHANGE IN CONDITION, CALL LIGHT WITHIN REACH
[2018-02-03] MEDS: TEMAZEPAM 15 MG CAP PO SCH (20:53)
[2018-02-04] VITALS: BP 115/54
[2018-02-04 00:35] VITALS: BP 128/58
[2018-02-04] MEDS: PIPER-TAZ 3.375 GM 50 ML IV SCH ×2 (04:14→09:13)
[2018-02-04] MEDS: LEVOTHYROXINE SODIUM 75 MCG TAB PO SCH (05:36)
[2018-02-04 06:38] VITALS: BP 121/58
--- NOTE | 2018-02-04 07:24 | NUR ---
Rcvd patient in report this am. patient is asleep in bed at this time. No s/s of distress noted
--- NOTE | 2018-02-04 07:25 | Progress Note ---
DATE: February 04, 2018 Patient is status post colonoscopy with the diagnosis of ischemic colitis. Doing well. No complaints. Patient is tolerating her diet without any problems. Had a bowel movement yesterday. VITAL SIGNS: Today, temperature is 96.3, pulse of 59, blood pressure is 121/58, pulse ox of 98%. MEDICATIONS: She is on 1. Levothyroxine 75. 2. Piperacillin/Zosyn q.6 h. 3. Patient is also on temazepam 50 mg nightly. 4. Pantoprazole 40 mg. 5. Imitrex 50 mg b.i.d. 6. Toradol as needed. ALLERGIES: , CEPHALEXIN, LEVAQUIN, METRONIDAZOLE, AND MORPHINE. EXAMINATION GENERAL: Patient is alert and oriented x3. HEENT: Normocephalic, atraumatic. Pupils are reactive to light and accommodation. CVS: S1, S2 normal. Regular rate, rhythm. ABDOMEN: Nontender, nondistended. EXTREMITIES: No clubbing, no cyanosis, no edema. LABORATORY VALUES: None today. White count had normalized. ASSESSMENT 1. Colitis, presumed ischemic. Patient will need computed tomography angiogram and possible cardiac catheterization in an outpatient basis. Will send her home on a soft mechanical diet and stay on it. Patient is advised with strict warnings and also, patient will be given Bactrim DS antibiotic for 5 more days. 2. Hypertension, hypothyroidism, which will continue the medication. Further recommendations per clinical course. Will continue monitor the patient as outpatient and possible do the test required as an outpatient. For further information, look in the chart. Medicines on discharge, please look in the medical reconciliation sheet. Job#: [id number]
[2018-02-04] MEDS ORDERED: ZOFRAN4 MG PO (07:50)
[2018-02-04] MEDS ORDERED: BACTRIM DS TAB1 EACH PO (07:50)
[2018-02-04 08:03] VITALS: BP 127/58
[2018-02-04] MEDS: SODIUM CHLORIDE 0.9% 1000ML 1,000 ML IV SCH (08:20)
--- NOTE | 2018-02-04 08:23 | NUR ---
IV removed at this time. Pressure dressing applied.
[2018-02-04] MEDS: PANTOPRAZOLE 40 MG 10ML VIAL IV SCH (09:00)
[2018-02-04 09:47] VITALS: BP 127/58
--- NOTE | 2018-02-04 09:50 | NUR ---
Patient discharged from facility to home. Patient assisted out via wheelchair. Reviewed all discharge paperwork, follow up appts and RX's given. Cut Out Worker discussed diet with patient. Patient verbalized understanding
== END 2018-02-04 09:50 | disposition home or self-care (01) | DRG 871 ==
LOC: ER 10:45 → ERHOLD 22:09 → MED/SURG 01-31 00:40 → OBSVTOIN 01-31 13:36
PROVIDERS: ADMIT Family Medicine; ATTEND Family Medicine
PROC: 0DBG8ZX Excision of Left Large Intestine, Via Natural or Artificial Opening Endoscopic, Diagnostic (ICD-10-PCS; principal; 2018-02-02 12:00)
DX: A41.9 Sepsis, unspecified organism (principal); K55.039 Acute (reversible) ischemia of large intestine, extent unspecified; K51.50 Left sided colitis without complications; E03.9 Hypothyroidism, unspecified; G47.00 Insomnia, unspecified; I10 Essential (primary) hypertension; R51 Headache; E87.5 Hyperkalemia; K64.8 Other hemorrhoids; K57.30 Diverticulosis of large intestine without perforation or abscess without bleeding; Z88.1 Allergy status to other antibiotic agents; Z88.5 Allergy status to narcotic agent; K44.9 Diaphragmatic hernia without obstruction or gangrene
CPT/HCPCS: 36415; 45380; 74018; 74176; 80048; 80053; 82550; 82553; 83605; 84484; 85025; 88305; 99284; G0378; J1200; J1885; J2405; J2543; J2765; J7030; J7040; J7120

== ENCOUNTER → 2018-03-12 | Outpatient (CLI) | payer MEDICARE ==
[~2018-03-12] MED LIST changes: +BACTRIM DS TAB1 EACH PO; +IOPAMIDOL 370 MG/ML 200 ML INFUS..BTL INJ ONE; +LEVOTHYROXINE75 MCG PO; +SODIUM CHLORIDE 0.9% 50ML 50 ML ONE; +SUMATRIPTAN SUC50 MG PO; +TEMAZEPAM15 MG PO; +ZOFRAN4 MG PO
[2018-03-12 08:19] LABS: BLOOD UREA NITROGEN 16 mg/dL (7-26); BUN/CREATININE RATIO 21 (6-25); CREATININE, SERUM 0.76 mg/dL (0.57-1.11); EST GLOMERULAR FILTRATION RATE > 60 ML/MIN (60-)
--- NOTE | 2018-03-12 10:15 | Diagnostic Imaging Report ---
EXAM: CTA OF THE ABDOMINAL AORTA AND PELVIC ARTERIES INDICATION: Concern for ischemic colitis COMPARISON: CT abdomen and pelvis without contrast 01/30/2018 TECHNIQUE: Multi-detector CT technology was employed. CTA of the abdomen and pelvis was performed after the administration of IV contrast. IV CONTRAST: 100 mL of Isovue-370 ORAL CONTRAST: None COMPLICATIONS: None For optimization of anatomic evaluation, multiplanar reconstruction, maximum intensity projections, and advanced 3-D off-line postprocessing were performed on a dedicated stand-alone workstation under the direct supervision of the interpreting physician. FINDINGS: Potential study limitations: None. VASCULAR WITH ADVANCED 3-D OFF-LINE POSTPROCESSING: The abdominal aorta is nonaneurysmal. There is mild calcified and noncalcified atherosclerotic plaque along the course of the abdominal aorta. The origins of the celiac axis and SMA are widely patent. There is suspected mild stenosis of the KACY origin. No filling defects are identified within the celiac trunk, SMA to the level of the proximal jejunal and colic branches, or KACY. No significant atherosclerotic plaque within the central visceral branches. Single bilateral main renal arteries with a small accessory left renal artery, all of which are patent. The bilateral common and external iliac arteries are widely patent. Internal iliac arteries and visceral branches are patent. Bilateral common femoral arteries and proximal superficial femoral and profundus femoris arteries are widely patent. LOWER CHEST: Mild bilateral lower lobe bronchiectasis. Large hiatal hernia, grossly unchanged relative to 01/30/2018. Calcified left lower lobe granuloma.. ABDOMEN: The liver, gallbladder and adrenal glands, and kidneys are unremarkable. Heterogeneity of splenic attenuation reflects arterial phase of scan. There is pancreatic ductal dilatation to a maximum of 5 mm without discrete mass lesion identified. PELVIS: Urinary bladder is unremarkable. Uterus is not identified and has presumably been removed. No adnexal mass. No ascites or pneumoperitoneum. The large bowel shows no distention or wall thickening. Inflammatory changes along the left colon described on the comparison examination have resolved. The appendix is not definitively identified. No small bowel dilatation to suggest obstruction. BONES: No osseous destructive lesions or focal soft tissue abnormalities. Degenerative disc changes and facet arthropathy of the lumbar spine. IMPRESSION: Atherosclerotic plaque results in mild inferior mesenteric arterial origin stenosis. Widely patent celiac axis and superior mesenteric artery origins and proximal visceral branches. No filling defects within the celiac axis, SMA, or KACY. Interval resolution of inflammatory changes along the left colon. Persistent sigmoid diverticulosis without evidence of diverticulitis. Mild pancreatic ductal dilatation is of uncertain etiology as no discrete mass lesion is identified. Further evaluation with MRCP is suggested. No intrahepatic biliary ductal dilatation. Large hiatal hernia. Signed by: Dr. Brandon Silva M.D. on 03/12/2018 10:11 AM
== END ==
LOC: CT 07:13
PROVIDERS: ATTEND Internal Medicine Interventional Cardiology
DX: K55.9 Vascular disorder of intestine, unspecified (principal)
CPT/HCPCS: 36415; 74174; 82565; 84520; Q9967

== ENCOUNTER 2019-12-06 12:58 | Emergency (ER) | payer MEDICARE ==
[~2019-12-06] VITALS: Ht 157.5 cm; Wt 62.1 kg
[~2019-12-06 12:58] MED LIST changes: -IOPAMIDOL 370 MG/ML 200 ML INFUS..BTL INJ ONE; -SODIUM CHLORIDE 0.9% 50ML 50 ML ONE
[2019-12-06] MEDS ORDERED: ONDANSETRON HCL INJ 2MG/ML 2ML 2 MG/ML VIAL ONE (13:43)
[2019-12-06] MEDS ORDERED: SODIUM CHLORIDE 0.9% 1000ML 1,000 ML ONE (13:43)
[2019-12-06] MEDS ORDERED: ONDANSETRON HCL INJ 2MG/ML 2ML 2 MG/ML VIAL IV STA ×2 (13:53→16:11)
--- NOTE | 2019-12-06 13:55 | NUR ---
notified of hypotension.
[2019-12-06] MEDS ORDERED: SODIUM CHLORIDE 0.9% 1000ML 1,000 ML IV SCH (14:00)
[2019-12-06] MEDS ORDERED: SODIUM CHLORIDE 0.9% 1000ML 1,000 ML IV STA (14:02)
[2019-12-06 14:11] LABS: BILIRUBIN,URINE NEGATIVE (NEGATIVE); CLARITY,URINE SL CLOUDY (CLEAR); COLOR,URINE YELLOW (YELLOW); KETONES,URINE NEGATIVE (NEGATIVE); LEUKOCYTE ESTERASE ,URINE TRACE (NEGATIVE); NITRITE,URINE NEGATIVE (NEGATIVE); PROTEIN,URINE DIPSTICK NEGATIVE (NEGATIVE); URINE UROBILINOGEN 0.2 mg/dL (0.2 - 1)
--- OUTSIDE RECORDS SUMMARY | 2019-12-06 14:16 | XMS REPORT | Continuity of Care Document ---
Author Author [facility] t Organization [facility] Address 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 Name Role Phone Jonathan WRIGHT MD PCP LALITO ELIZABETH Attphys Unavailable Jonathan PRUITT Attphys Unavailable Jonathan WRIGHT Attphys Unavailable Jonathan WRIGHT Admphys Unavailable Payers Payer Name Policy Type Policy Number Effective Date Expiration Date Jonathan Beltran Medicare Advantage [id number] 2017 00:00:00 [facility] Problems Condition Name Condition Details Condition Category Status Onset Date Resolution Date Last Treatment Date Treating Clinician Comments Source Colitis Colitis Problem Active [facility] Abdominal pain Abdominal pain Problem Active [facility] Allergies, Adverse Reactions, Alerts Allergy Name Allergy Type Status Severity Reaction(s) Onset Date Inacti ve Date Treating Clinician Comments Source morphine DA Active SV 2019-02-01 00:00:00 [facility] cephalexin DA Active SV 2019-02-01 00:00:00 [facility] Acetaminophen Propensity to adverse reactions Active Moderate R INGING IN EARS 2018-02-02 00:00:00 [facility] Morphine Allergy to Substance Active Moderate rash, welts 2018-01-30 00 :00:00 [facility] Cephalexin Allergy to Substance Active EARS RING, BAD TASTE IN MOUTH 2017-08-07 00:00:00 [facility] Metronidazole Allergy to Substance Active EARS RING, B AD TASTE IN MOUTH 2017-08-07 00:00:00 [facility] Levofloxacin Allergy to Substance Active Mild rash 2017-08-07 00:00:0 0 [facility] No Known Allergies DA Active U 2013-08-13 00:00:00 [facility] Medications Ordered Medication Name Filled Medication Name Start Date Stop Da te Current Medication? Ordering Clinician Indication Dosage Frequency Signature (SIG) Comments Components Source Levothyroxine Sodium 75 Mcg Tablet Levothyroxine Sodium 75 Mcg Tablet Yes 75 Daily [facility] Ondansetron Hcl (Zofran*) 4 Mg Tablet Ondansetron Hcl (Zofran*) 4 M g Tablet Yes 4 Every 6 Hours as needed for Nausea And V omiting [facility] Sulfamethoxazole/Trimethoprim (Bactrim Ds Tablet) 1 Ea ch Tablet Sulfamethoxazole/Trimethoprim (Bactrim Ds Tablet) 1 Each Tablet Yes 1 Twice A Day [facility] Sumatriptan Succinate 50 Mg Tablet Sumatriptan Succinate 50 Mg Tablet Yes 50 Twice A Day as needed for Migraine [facility] Temazepam 15 Mg Capsule Temazepam 15 Mg Capsule Yes 15 Bedtime [facility] Diphenoxylate Hcl/Atropine (Lomotil Tablet) 1 Each Tab let, 1 Tab Right Eye Diphenoxylate Hcl/Atropine (Lomotil Tablet) 1 Each Tablet, 1 Tab Right Eye 2018-01-30 00:00:00 No 1 Every 8 Hours for Di arrhea [facility] Hydrocodone Bit/Acetaminophen (Briggs 10-325 Tablet) 1 Each Tablet, 10 Mg Oral Hydrocodone Bit/Acetaminophen (Briggs 10-325 Tablet) 1 Each Tablet, 10 Mg Oral 2018-01-30 00:00:00 No 10 Every 6 Hours as nee ded for Prn [facility] Levothyroxine Sodium (Levoxyl) 50 Mcg Tablet, 50 Mcg O ral Levothyroxine Sodium (Levoxyl) 50 Mcg Tablet, 50 Mcg Oral 2018-01-30 00:00:00 No 50 Daily [facility] Levofloxacin (Levaquin) 500 Mg Tablet, 500 Mg Oral Lev ofloxacin (Levaquin) 500 Mg Tablet, 500 Mg Oral 2017-08-11 00:00:00 No 500 D aily [facility] Simvastatin (Zocor) 5 Mg Tablet, 5 Mg Oral Simvastatin (Zocor) 5 Mg Tablet, 5 Mg Oral 2015-10-20 00:00:00 No 5 Daily [facility] Topiramate (Topamax) 25 Mg Tablet, 10 Mg Oral Topirama te (Topamax) 25 Mg Tablet, 10 Mg Oral 2015-10-20 00:00:00 No 10 Twice A Day [facility] Anoro Ellepttheresa , Anoro Elleptia , 2014-05-05 00:00:00 No Daily [facility] [place] , Oral [place] , Oral 2014-05-05 00:00:00 No Daily [facility] Procedures Procedure Date / Time Performed Performing Clinician [facility] e Colonoscopy with biopsy 2018-02-02 00:00:00 YORDY CORRAL [facility] CT of abdomen and pelvis without contrast 2018-01-30 00:00:00 CARLOS PICKERING [facility] INSERTION OF INFUSION DEV INTO SUP VENA CAVA, PERC APPROACH 2017-08-07 00:00:00 TR HATFIELD [facility] CT of abdomen and pelvis without contrast 2017-08-06 00:00:00 GIN ABDI [facility] Encounters Start Date/Time End Date/Time Encounter Type Admission Type Attendi [facility] Facility Care Department Encounter ID Source 2018-01-31 13:36:00 2018-02-04 09:50:00 Discharged Inpatient 1 SONALCARLOS [facility] [id number] [facility] 2017-08-07 01:52:00 2017-08-11 10:21:00 Discharged Inpatient 1 DIEUDONNE WRIGHT [facility] [id number] [facility] Results Test Description Test Time Test Comments Results Result Comments Source SCR MAMM BILATERAL TABATHA CAD DIGITAL 2019-08-02 09:28:15 - SCR MAMM BILATERAL TABATHA CAD DIGITALBILATERAL DIGITAL SCREENING MAMMOGRAM 3D/2D WITH CAD: 08/02/2019CLINICAL: Asymptomatic. Digital breast tomosynthesis was performed in addition to routine CC and MLO views. Current mammographic images were evaluated by either a [employer] M-Vu or a [employer] CAD (computer aided detection system). Comparison is made to exams dated 06/18/2018 mammogram, 06/04 mammogram, and 06/30/2017 mammogram - [facility] There are scattered fibroglandular tissues in both breasts. There are benign calcifications in both breasts. There also is a benign intramammary node in the right breast. No suspicious mass, architectural distortion, malignant type calcification, or lymph node abnormality detected. Breast architecture is stable compared to prior exams.IMPRESSION: BENIGNThere is no mammographic evidence of malignancy. Resume annual screening mammography in one year. Evelyn Ellis M.D. cc/penrad:08/02/2019 09:28:15 Entry: - 020 09:47:31Imaging Technologist: Amairani Rider , [facility]-FWletter sent: BIRADS 1-2 Normal Mammogram BI-RADS: 2 Benign GASTRIC,BIOPSY 2019-02-08 18:04:00 RUN DATE: 02/08/19 [place] - Lab PAGE 1 RUN TIME: 1804 Specimen Inquiry RUN USER: INTERFACE PATIENT: YG FORTUNE LOC: NEAL U #: [id number] AGE/SX: 78/F ROOM: RE02/04/19[facility] DR: Yordy Corral : 44 BED: DIS: STATUS: [facility] TLOC: SPEC #: [id number] RECD: 02/05/19 STATUS: [facility] #: [id number] KEEGAN: 02/04/19153 [facility] DR: Yordy Corral MD ENTERED: 02/05/19 SP TYPE: GASTRIC BX OTHR DR: Dieudonne Wright MD ORDERED: GROSS COPIES TO: Yordy Corral MD [address], [address] [place] [address] Dieudonne Wright MD [address] [place], [place] [id number] PROCEDURES: GROSS (02/08/19-760) TISSUES: 1. GASTRIC ULCER - BX 2. ESOPHAGUS, NOS - BX CLINICAL HISTORY COLLECTION DATE: 02/04/19 PANCREAS MASS FINAL DIAGNOSIS Gastric ulcer, biopsy: GASTRIC MUCOSA WITH NO SIGNIFICANT ACUTE OR CHRONIC INFLAMMATORY INFILTRATE NO DISCRETE AREAS OF MUCOSAL EROSION/ULCERATION NEGATIVE FOR INTESTINAL METAPLASIA NEGATIVE FOR HELICOBACTER ORGANISMS NEGATIVE FOR MALIGNANCY Esophagus, biopsy: SQUAMOUS MUCOSA WITH ELONGATION OF SQUAMOUS PAPILLAE, FEW INTRAEPITHELIAL LYMPHOCYTES AND MILD BASAL CELL HYPERPLASIA NO INCREASED NUMBER OF INTRAEPITHELIAL EOSINOPHILS NO GLANDULAR EPITHELIUM PRESENT SUGGESTIVE OF REFLUX ESOPHAGITIS CONTINUED ON NEXT PAGE RUN DATE: 02/08/19 [place] [facility] PAGE 2 RUN TIME: 1804 Specimen Inquiry RUN USER: INTERFACE -------- ----SPEC #: [id number] PATIENT: YG FORTUNE MATT #[id number] (Continued) FINAL DIAGNOSIS (Continued) RRB/sm D [id number], [id number] MACROSCOPIC The first specimen is received in formalin, labeled with the patient's name, and identified as "gastric ulcer", and consists of umana biopsy tissue measuring 0.4 cm, submitted as (1). The second specimen is received in formalin, labeled with the patient's name, and identified as "esophagus bx", and consists of umana biopsy tissue measuring 0.3 cm, submitted as (2). GROSS PERFORMED AT [facility] [address] [place] [address] (p)[phone] MICROSCOPIC All of the stains, including any controls performed, stain appropriately. MICROSCOPIC PERFORMED AT [facility] [address] [place] [address] (p)[phone] PERFORMING SITE Diagnosis performed at: [facility] [address] [place] [address] Signed SIGNATURE ON FILE Young Blanca MD 02/08/19 1804 END OF REPORT BASIC METABOLIC PANEL 2019-02-01 13:32:00 Test Item SODIUM (test code = NA) 140 mmol/L 136-145 N POTASSIUM (test code = K) 4.5 mmol/L 3.5-5.1 N CHLORIDE (test code = CL) 105.0 mmol/L 98-107 N CARBON DIOXIDE (test code = CO2) 27.0 mmol/L 21-32 N ANION GAP (test code = GAP) 12.5 10-20 N GLUCOSE (test code = GLU) 101 mg/dL 74-106 N BLOOD UREA NITROGEN (test code = BUN) 23 mg/dL 7-18 H GLOMERULAR FILTRATION RATE (test code = GFR) > 60 mL/min >=60 Estimated GFR by using Modified MDRD formula.Chronic kidney disease is defined as either kidney damageor GFR <60 mL/min/1.73 m2 for >3 months. CREATININE (test code = CREAT) 0.70 mg/dL 0.55-1.02 N Note change in reference range due to change in reagent. BUN/CREATININE RATIO (test code = BUN/CREA) 31.4 10-20 H CALCIUM (test code = CA) 9.4 mg/dL 8.5-10.1 N BASIC METABOLIC [id number] 13:13:00* Test Item Value Reference Range Interpretation Comments SODIUM (test code = NA) 140 mmol/L 136-145 N POTASSIUM (test code = K) 4.5 mmol/L 3.5-5.1 N CHLORIDE (test code = CL) 105.0 mmol/L 98-107 N CARBON DIOXIDE (test code = CO2) mmol/L 21-32 ANION GAP (test code = GAP) 10-20 GLUCOSE (test code = GLU) mg/dL 74-106 BLOOD UREA NITROGEN (test code = BUN) mg/dL 7-18 GLOMERULAR FILTRATION RATE (test code = GFR) mL/min >=60 CREATININE (test code = CREAT) mg/dL 0.55-1.02 BUN/CREATININE RATIO (test code = BUN/CREA) 10-20 CALCIUM (test code = CA) mg/dL 8.5-10.1 DIAG MAMM LEFT TABATHA CAD [id number] 13:45:04 - DIAG MAMM LEFT TABATHA CAD DIGITALUNILATERAL LEFT DIGITAL DIAGNOSTIC MAMMOGRAM 3D/2D WITH CAD: 06/18/2018CLINICAL: Abnormal Mammogram. Digital breast tomosynthesis was performed in addition to routine CC and MLO views. Current mammographic images were evaluated by either a [employer] M-Vu or a [employer] CAD (computer aided detection system). Comparison is made to exams dated 06/04/2018 mammogram, 06/30/2017 mammogram, and 06/28/2016 mammogram - [facility]-. The tissue of the left breast is predominantly fatty. There are benign calc ifications in the left breast. There is a mass in the left breast at 12 o'clock , middle depth. This is seen in additional views. No other significant masses or calcifications are seen in the breast. INCOMPLETE ASSESSMENT: ADDITIONAL KACY GING EVALUATION RECOMMENDEDThe mass in the left breast is indeterminate. An ult rasound is recommended. Resume annual screening mammography in one year. - VIDAL AST ULTRASOUND LEFTULTRASOUND OF LEFT BREAST AND LEFT AXILLA: 06/18/2018Compariso n is made to exams dated 06/04/2018 mammogram, 06/30/2017 mammogram, and 06/28/2016 mammogram - [facility]-. Color flow, real-time, and Doppler ult rasound of the left breast and axilla were performed. Hector scale images of the real-time examination were reviewed. There is a benign round cyst in the left b reast at 12 o'clock middle depth. This round cyst is hypoechoic. This correlat es with mammography findings. No abnormalities were seen sonographically in the left breast or the left axilla. IMPRESSION: BENIGN There is no sonographic sanna dence of malignancy. The round cyst in the left breast is benign. Resume annua l screening mammography in one year. Anselmo Ordonez M.D. et/:06/18/2018 1 3:45:04 Entry: - 06/18/2018 16:36:02Imaging Technologist: Amairani BAY, [facility]-letter sent: BIRADS 1-2 Combo FU Letter Mamm ogram BI-RADS: 0 Indeterminate Ultrasound BI-RADS: 2 BenignBREAST ULTRASOUND [id number] 13:45:04 - DIAG MAMM LEFT TABATHA CAD DIGITALUNILATERAL LEFT DIGITAL DIAGNOSTIC MAMMOGRAM 3D/2D WITH CAD: 06/18/2018CLINICAL: Abnormal Mammogram. Digital breast tomosynthesis was performed in addition to routine CC and MLO views. Current mammographic images were evaluated by either a [employer] M-Vu or a [employer] Image[employer] CAD (computer aided detection system). Comparison is made to exams dated 06/04/2018 mammogram, 06/30/2017 mammogram, and [facility] The tissue of the left breast is predominantly fatty. There are benign calcifications in the left breast. There is a mass in the left breast at 12 o'clock, middle depth. This is seen in additional views. No other significant masses or calcifications are seen in the breast. INCOMPLETE ASSESSMENT: ADDITIONAL IMAGING EVALUATION RECOMMENDEDThe mass in the left breast is indeterminate. An ultrasound is recommended. Resume annual screening mammography in one year. - BREAST ULTRASOUND LEFTULTRASOUND OF LEFT BREAST AND LEFT AXILLA: 06/18/2018Comparison is made to exams dated 06/04/2018 mammogram, 06/30/2017 mammogram, and [facility]/28/[facility]. Color flow, real-time, and Doppler ultrasound of the left breast and axilla were performed. Hector scale images of the real-time examination were reviewed. There is a benign round cyst in the left breast at 12 o'clock middle depth. This round cyst is hypoechoic. This correlates with mammography findings. No abnormalities were seen sonographically in the left breast or the left axilla. IMPRESSION: BENIGN There is no sonographic evidence of malignancy. The round cyst in the left breast is benign. Resume annual screening mammography in one year. Anselmo Ordonez M.D. et/:06/18/2018 13:45:04 Entry: - 06/18/2018 16:36:02Imaging Technologist: Amairani Rider FW, [facility]-FWletter sent: BIRADS 1-2 Combo FU Letter Mammogram BI- RADS: 0 Indeterminate Ultrasound BI-RADS: 2 BenignSCR MAMM BILATERAL TABATHA CAD [id number] 17:50:49 - SCR MAMM BILATERAL TABATHA CAD DIGITALBILATERAL DIGITAL SCREENING MAMMOGRAM 3D/2D WITH CAD: 06/04/2018CLINICAL: Asymptomatic. Digital breast tomosynthesis was performed in addition to routine CC and MLO views. Current mammographic images were evaluated by either a [employer] M-Vu or a [employer] Image[employer] CAD (computer aided detection system). Comparison is made to exams dated 06/30/2017 mammogram, 06/28/2016 mammogram, and 05/24/2015 mammogram - [facility]-. The tissue of both breasts is predominantly fatty. There is a 4 mm oval mass with a circumscribed margin in the left breast, central to the nipple, middle depth, 6 cm from the nipple. No other significant masses, calcifications, or other findings are seen in either breast. IMPRESSION: INCOMPLETE ASSESSMENT: ADDITIONAL IMAGING EVALUATION RECOMMENDEDThe 4 mm oval mass in the left breast is indeterminate. Ultrasound with possible additional views are recommended. Libby Johnson D.O. al/:06/04/2018 17:50:49 Traffic Expert: Jaimie BAY, [facility]-FWletter sent: Additional Imaging Mammogram BI-RADS: 0 IndeterminateCTA ABD/[id number] 09:56:00 [place] [address] Patient Name: YG FORTUNE MR #: [id number] : 1940 Age/Sex: 77/F Req #: [id number] [facility] Physician: Ordered by: LALITO ELIZABETH MD Report #: [id number] Location: CT Room/Bed: Procedure: [id number] CT/ CTA ABD/PELVIS Exam Date: 03/12/18 Exam Time: 0915 REPORT STATUS: Signed EXAM: CTA OF THE ABDOMINAL AORTA AND PELVIC ARTERIES INDICATION: Concern for ischemic colitis COMPARISON: CT abdomen and pelvis without contrast 01/30/2018 TECHNIQUE: Multi-detector CT technology was employed. CTA of the abdomen and p peewee was performed after the administration of IV contrast. IV CONTRAST: 100 mL of Isovue-370 ORAL CONTRAST: None COMPLICATIONS: None For optimization of anatomic e valuation, multiplanar reconstruction, maximum intensity projections, and adva nced 3-D off-line postprocessing were performed on a dedicated stand-alone wor kstation under the direct supervision of the interpreting physician. F INDINGS: Potential study limitations: None. VASCULAR WITH ADVANCED 3-D OF F-LINE POSTPROCESSING: The abdominal aorta is nonaneurysmal. There is mild calcified and noncalcified atherosclerotic plaque along the course of the abdo cielo aorta. The origins of the celiac axis and SMA are widely patent. Ther e is suspected mild stenosis of the KACY origin. No filling defects are identif ied within the celiac trunk, SMA to the level of the proximal jejunal and coli c branches, or KACY. No significant atherosclerotic plaque within the cent ral visceral branches. Single bilateral main renal arteries with a small acces nehal left renal artery, all of which are patent. The bilateral common and external iliac arteries are widely patent. Internal iliac arteries and viscer al branches are patent. Bilateral common femoral arteries and proximal superfi cial femoral and profundus femoris arteries are widely patent. LOWER CHES T: Mild bilateral lower lobe bronchiectasis. Large hiatal hernia, grossly un changed relative to 01/30/2018. Calcified left lower lobe granuloma.. ABDOM EN: The liver, gallbladder and adrenal glands, and kidneys are unremarkable. Heterogeneity of splenic attenuation reflects arterial phase of scan. There is pancreatic ductal dilatation to a maximum of 5 mm without discrete mass lesion identified. PELVIS: Urinary bladder is unremarkable. Uterus is not identified and has presumably been removed. No adnexal mass. No asc ites or pneumoperitoneum. The large bowel shows no distention or wall thick ening. Inflammatory changes along the left colon described on the comparison e xamination have resolved. The appendix is not definitively identified. No smal l bowel dilatation to suggest obstruction. BONES: No osseous elenita tructive lesions or focal soft tissue abnormalities. Degenerative disc changes and facet arthropathy of the lumbar spine. 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 Widely pat ent celiac axis and superior mesenteric artery origins and proximal visceral b ranches. No filling defects within the celiac axis, SMA, or KACY. Interval resolution of inflammatory changes along the left colon. Persistent sigmoid d iverticulosis without evidence of diverticulitis. Mild pancreatic ductal di latation is of uncertain etiology as no discrete mass lesion is identified. Fu rther evaluation with MRCP is suggested. No intrahepatic biliary ductal dilata tion. Large hiatal hernia. Signed by: Dr. Adore iSlva M.D. on 2018 10:11 AM Dictated By: ADORE SILVA MD 1011 Transcribed By: MICAELA on 03/12/18 1011 COPY TO: LALITO ELIZABETH MD Sodium [id number] 06:41:00* Test Item Value Reference Range Interpretation Comments Sodium Level (test code = 2951-2) 142 136-145 [facility] [id number] 06:41:00* Test Item Value Reference Range Interpretation Comments Potassium Level (test code = 2823-3) 3.2 3.5-5.1 L [facility] HospitalChloride [id number] 06:41:00* Test Item Value Reference Range Interpretation Comments Chloride Level (test code = 2075-0) 110 98-107 H [facility] HospitalCarbon Dioxide [id number] 06:41:00* Test Item Value Reference Range Interpretation Comments Carbon Dioxide Level (test code = 2028-9) 23 22-29 [facility] HospitalAnion [id number] 06:41:00* Test Item Value Reference Range Interpretation Comments Anion Gap (test code = 72458-0) 12.2 8-16 [facility] HospitalBlood Urea [id number] 06:41:00* Test Item Value Reference Range Interpretation Comments Blood Urea Nitrogen (test code = 3094-0) 6 7-26 L [facility] HospitalCreatinine2018-12-04 06:41:00* Test Item Value Reference Range Interpretation Comments Creatinine (test code = 2160-0) 0.76 0.57-1.11 [facility] HospitalBUN/Creatinine [id number] 06:41:00* Test Item Value Reference Range Interpretation Comments BUN/Creatinine Ratio (test code = 3097-3) 8 6-25 [facility] HospitalEstimat Glomerular Filtration Rate 2018-02-03 06:41:00* Test Item Value Reference Range Interpretation Comments Estimat Glomerular Filtration Rate (test code = 034212035) > 60 >60 Ranges were taken from the National Kidney Disease Education Program and the [facility] literature.Reference ranges:60 or greater: Ebccoi13-36 ( for 3 consecutive months): Chronic kidney disease 15 or less: Kidney failureUniversity HospitalGlucose [id number] 06:41:00* Test Item Value Reference Range Interpretation Comments Glucose Level (test code = QXH3077) 83 74-118 [facility] HospitalCalcium Synkv3480-13-64 06:41:00* Test Item Value Reference Range Interpretation Comments Calcium Level (test code = 91659-6) 8.4 8.4-10.2 [facility] HospitalWhite Blood [id number] 06:11:00* Test Item Value Reference Range Interpretation Comments White Blood Count (test code = 6690-2) 7.99 4.8-10.8 [facility] HospitalRed Blood [id number] 06:11:00* Test Item Value Reference Range Interpretation Comments Red Blood Count (test code = 789-8) 3.99 3.6-5.1 [facility] HospitalHemoglobin2018-12-04 06:11:00* Test Item Value Reference Range Interpretation Comments Hemoglobin (test code = 19329-7) 12.0 12.0-16.0 [facility] HospitalHematocrit2018-12-04 06:11:00* Test Item Value Reference Range Interpretation Comments Hematocrit (test code = 4544-3) 36.2 34.2-44.1 [facility] HospitalMean Corpuscular Rtpnve7566-73-37 06:11:00* Test Item Value Reference Range Interpretation Comments Mean Corpuscular Volume (test code = 787-2) 90.7 81-99 [facility] HospitalMean Corpuscular Purqwyzszt2517-01-05 06:11:00* Test Item Value Reference Range Interpretation Comments Mean Corpuscular Hemoglobin (test code = 785-6) 30.1 28-32 [facility] Corp[facility] Hemoglobin Concent 2018-02-03 06:11:00* Test Item Value Reference Range Interpretation Comments Mean Corpuscular Hemoglobin Concent (test code = 786-4) 33.1 31-35 [facility] HospitalRed Cell Distribution Pxiyf4510-31-40 06:11:00* Test Item Value Reference Range Interpretation Comments Red Cell Distribution Width (test code = 16727-3) 13.5 11.7 -14.4 [facility] HospitalPlatelet Dbaqk0221-53-32 06:11:00* Test Item Value Reference Range Interpretation Comments Platelet Count (test code = 777-3) 306 140-360 [facility] HospitalNeutrophils (%) (Auto)2018-02-03 06:11:00 * Test Item Value Reference Range Interpretation Comments Neutrophils (%) (Auto) (test code = 41210-0) 55.0 38.7-80.0 [facility] HospitalLymphocytes (%) (Auto)2018-02-03 06:11:00 * Test Item Value Reference Range Interpretation Comments Lymphocytes (%) (Auto) (test code = 736-9) 30.3 18.0-39.1 [facility] HospitalMonocytes (%) (Auto)2018-02-03 06:11:00* Test Item Value Reference Range Interpretation Comments Monocytes (%) (Auto) (test code = 5905-5) 8.5 4.4-11.3 [facility] HospitalEosinophils (%) (Auto)2018-02-03 06:11:00 * Test Item Value Reference Range Interpretation Comments Eosinophils (%) (Auto) (test code = 713-8) 5.3 0.0-6.0 [facility] HospitalBasophils (%) (Auto)2018-02-03 06:11:00* Test Item Value Reference Range Interpretation Comments Basophils (%) (Auto) (test code = 706-2) 0.5 0.0-1.0 [facility] HospitalIM GRANULOCYTES %2018-02-03 06:11:00* Test Item Value Reference Range Interpretation Comments IM GRANULOCYTES % (test code = IM GRANULOCYTES %) 0.4 0.0- 1.0 [facility] HospitalNeutrophils # (Auto)2018-02-03 06:11:00* Test Item Value Reference Range Interpretation Comments Neutrophils # (Auto) (test code = 751-8) 4.4 2.1-6.9 [facility] HospitalLymphocytes # (Auto)2018-02-03 06:11:00* Test Item Value Reference Range Interpretation Comments Lymphocytes # (Auto) (test code = 32550-9) 2.4 1.0-3.2 [facility] HospitalMonocytes # (Auto)2018-02-03 06:11:00* Test Item Value Reference Range Interpretation Comments Monocytes # (Auto) (test code = 742-7) 0.7 0.2-0.8 [facility] HospitalEosinophils # (Auto)2018-02-03 06:11:00* Test Item Value Reference Range Interpretation Comments Eosinophils # (Auto) (test code = 711-2) 0.4 0.0-0.4 [facility] HospitalBasophils # (Auto)2018-02-03 06:11:00* Test Item Value Reference Range Interpretation Comments Basophils # (Auto) (test code = 704-7) 0.0 0.0-0.1 [facility] HospitalAbsolute Immature Granulocyte (auto 2018-02-03 06:11:00* Test Item Value Reference Range Interpretation Comments Absolute Immature Granulocyte (auto (eugenio t code = Absolute Immature Granulocyte (auto) 0.03 0-0.1 [facility] HospitalLactic Acid Dnotx0967-80-35 11:40:00* Test Item Value Reference Range Interpretation Comments Lactic Acid Level (test code = Lactic Acid Level) 21.7 4.5- 19.8 HH Results called to EFFIE MORA at 1139 on 01/31/18 by Sangeeta Hutson. RB [place]. [facility] Xfnnxlrha8864-46-51 08:03:00* Test Item Value Reference Range Interpretation Comments Total Bilirubin (test code = 1975-2) 0.7 0.2-1.2 [facility] HospitalAspartate Amino Transf (AST/SGOT) 2018-01-31 08:03:00* Test Item Value Reference Range Interpretation Comments Aspartate Amino Transf (AST/SGOT) (test code = Aspartate Amino Transf (AST/SGOT)) 15 5-34 [facility] HospitalAlanine Aminotransferase (ALT/SGPT) 2018-01-31 08:03:00* Test Item Value Reference Range Interpretation Comments Alanine Aminotransferase (ALT/SGPT) (test code = 1742-6) 8 0-55 [facility] Tcugzvu2933-76-61 08:03:00* Test Item Value Reference Range Interpretation Comments Total Protein (test code = 2885-2) 5.9 6.5-8.1 L [facility] HospitalAlbumin2018-12-01 08:03:00* Test Item Value Reference Range Interpretation Comments Albumin (test code = 1751-7) 3.0 3.5-5.0 L [facility] HospitalGlobulin2018-12-01 08:03:00* Test Item Value Reference Range Interpretation Comments Globulin (test code = 60213-1) 2.9 2.3-3.5 [facility] HospitalAlbumin/Globulin Qxitv8081-28-81 08:03:00 * Test Item Value Reference Range Interpretation Comments Albumin/Globulin Ratio (test code = 1759-0) 1.0 0.8-2.0 [facility] HospitalAlkaline Tlxvlndzrmh4038-81-83 08:03:00* Test Item Value Reference Range Interpretation Comments Alkaline Phosphatase (test code = 6768-6) 59 40-150 [facility] HospitalCT ABDOMEN/PELVIS PK1741-95-90 20:02:00 [place] [address] Patient Name: YG FORTUNE MR #: [id number] : 1940 Age/Sex: 77/F Req #: [id number] Adm Physician: Ordered by: CARLOS PRUITT MD Report #: [id number] Location: ER Room/Bed: Procedure: [id number] CT/CT ABDOMEN/PELVIS WO Exam Date: 01/30/18 Exam Silvio e: 1932 REPORT STATUS: Signed EX AM: CT Abdomen and Pelvis WITHOUT contrast INDICATION: ABD PAIN [id number] COMPARISON: CT dated 08/06/2017 TECHNIQUE: Abdomen and pelvi s were scanned utilizing a multidetector helical scanner from the lung base to the pubic symphysis without administration of IV contrast. Absence of intrave nous contrast decreases sensitivity for detection of focal lesions and vascula r pathology. Coronal and sagittal reformations were obtained. Routine protocol was performed. IV CONTRAST: None ORAL CONTRAST: Water COMPLICATIONS: None RADIATION DOSE: Total DLP: 291.34 mGy*cm Estimated effective dose: (DLP x 0.015 x size factor) mSv CTDIvol has been reviewed. It is below the limits set by the Radiation Protocol Committee (RPC). FINDINGS: LINES and TUBES: None. LOWER THORAX: Unrema rkable HEPATOBILIARY: Unenhanced liver is unremarkable. No biliary david jacinto dilation. GALLBLADDER: No radio-opaque stones or sludge. No wall th ickening. SPLEEN: No splenomegaly. PANCREAS: No focal masses or ducta l dilatation. ADRENALS: No adrenal nodules KIDNEYS/URETERS: No hydronephrosis. Limited for evaluation of renal parenchyma without intravenous contrast. No stones. GI TRACT: No abnormal distention, wall thickening, or evidence of bowel obstruction. Sigmoid diverticulosis. There is mild fat st randing along the descending colon in the left lower quadrant (series 2, image 50). Appendix is not visualized. Moderate size hiatal hernia. PELVIC ORG ANS/BLADDER: Unremarkable. Hysterectomy. LYMPH NODES: No lymphadenopathy. VESSELS: Unremarkable. PERITONEUM / RETROPERITONEUM: No free air or flu id. BONES: Mild lumbar spine scoliosis with multilevel advanced degenerativ e changes. Grade 1 anterolisthesis of relation to L5. SOFT TISSUES: Unrem arkable. IMPRESSION: 1. Mild fat stranding along the colon in left lower quadrant, concerning for mild left colitis. 2. Moderate size hiatal hernia. Signed by: Dr. Jamie Bernard MD on 01/30/2018 8:11 PM Dictated By: JAMIE BERNARD MD 10 Transcribed By: MICAELA on 01/30/182010 COPY TO: So PRUITT MD Creatine Kinase SZ4719-20-69 14:50:00* Test Item Value Reference Range Interpretation Comments Creatine Kinase MB (test code = 73869-6) 0.70 0-5.0 [facility] K4351-57-09 14:50:00* Test Item Value Reference Range Interpretation Comments Troponin I (test code = SLU5621) < 0.001 0-0.300 [facility] HospitalCreatine Rwisol5423-54-26 14:40:00* Test Item Value Reference Range Interpretation Comments Creatine Kinase (test code = 2157-6) 41 29-168 [facility] HospitalABDOMEN-[facility]VIEW ([facility]UB)2018-01-30 13:17:00 [facility] [address] [place] [address] Patient Name: YG FORTUNE MR #: [id number] : 1940 Age/Sex: 77/F Req #: [id number] Adm Physician: Ordered by: CARLOS PRUITT MD Report #: [id number] Location: ER Room/Bed: Procedure: [id number] DX/ABDOMEN-1VIEW ([facility]) Exam Date: 01/30/18 Exam Time : 1150 REPORT STATUS: Signed EXA M: ABDOMEN-1VIEW ([facility]) DATE: 01/30/2018 11:08 AM INDICATION: Abdominal pa in COMPARISON: CT scan 08/06/2017 FINDINGS: Nonobstructive bowel gas pat tern with a moderate amount of retained feces in the colon. Scattered degenera tive change about the bones. No suspicious calcifications are seen. IMPRE SSION: Findings which could be due to constipation. Signed by: Dr. Stefan Bunn M.D. on 01/30/2018 1:18 PM Dictated By: STEFAN BUNN MD, MD Elect ronically Signed By: STEFAN BUNN MD, MD on 01/30/181317 Transcribed By: ISABELLA WOODS on 01/30/181317 COPY TO: CARLOS PRUITT MD Stool Ghfvreujjayh7906-50-30 08:28:00* Test Item Value Reference Range Interpretation Comments Stool Calprotectin (test code = 61514-8) 285 0-120 H Results verified by repeat testingConcentration Interpretation Follow- Up<16 - 50 ug/g Normal None>50 -120 ug/g Borderline Re- evaluate in 4-6 weeks >120 ug/g Abnormal Repeat as clinically indicatedPerformed at: - [facility]Co[address] [id number] Director: Arnol Wilkins MD, Phone: [phone] HospitalBlood Bmrncyp1769-24-15 04:04:00* Test Item Value Reference Range Interpretation Comments Blood Culture (test code = 16666673) NO GROWTH AFTER 5 DAYS, FINAL REPORT [facility]odium Tywmh8709-42-12 08:09:00* Test Item Value Reference Range Interpretation Comments Sodium Level (test code = 2951-2) 140 136-145 [facility] HospitalPotassium Pkkuw3402-14-24 08:09:00* Test Item Value Reference Range Interpretation Comments Potassium Level (test code = 2823-3) 3.8 3.5-5.1 [facility] HospitalChloride Litkf1042-08-32 08:09:00* Test Item Value Reference Range Interpretation Comments Chloride Level (test code = 2075-0) 107 98-107 [facility] HospitalCarbon Dioxide Swcmi6519-00-45 08:09:00* Test Item Value Reference Range Interpretation Comments Carbon Dioxide Level (test code = 2028-9) 25 22-29 [facility] HospitalAnion Dtb6222-77-29 08:09:00* Test Item Value Reference Range Interpretation Comments Anion Gap (test code = 32377-4) 11.8 8-16 [facility] HospitalBlood Urea Qjgnlicv5451-65-78 08:09:00* Test Item Value Reference Range Interpretation Comments Blood Urea Nitrogen (test code = 3094-0) 7 7-26 [facility] HospitalCreatinine2018-06-11 08:09:00* Test Item Value Reference Range Interpretation Comments Creatinine (test code = 2160-0) 0.70 0.57-1.11 [facility] HospitalBUN/Creatinine Vdofh0482-59-80 08:09:00* Test Item Value Reference Range Interpretation Comments BUN/Creatinine Ratio (test code = 3097-3) 10 6-25 [facility] HospitalEstimat Glomerular Filtration Rate 2017-08-11 08:09:00* Test Item Value Reference Range Interpretation Comments Estimat Glomerular Filtration Rate (test code = 00318-1) 60- >60 Ranges were taken from the National Kidney Disease Education Program and the [facility] literature.Reference ranges:60 or greater: Kpuzve79-66 ( for 3 consecutive months): Chronic kidney disease 15 or less: Kidney failureCHI [facility]lor [facility] – GrapevineGlucose Asgzo1267-80-85 08:09:00* Test Item Value Reference Range Interpretation Comments Glucose Level (test code = ZYF6126) 90 74-118 [facility] HospitalCalcium Qaqxi5576-47-46 08:09:00* Test Item Value Reference Range Interpretation Comments Calcium Level (test code = 76798-7) 8.9 8.4-10.2 [facility] HospitalWhite Blood Uuxel1116-38-74 07:49:00* Test Item Value Reference Range Interpretation Comments White Blood Count (test code = 6690-2) 6.86 4.8-10.8 [facility] HospitalRed Blood Njbpb7158-06-21 07:49:00* Test Item Value Reference Range Interpretation Comments Red Blood Count (test code = 789-8) 4.21 3.6-5.1 [facility] HospitalHemoglobin2018-06-11 07:49:00* Test Item Value Reference Range Interpretation Comments Hemoglobin (test code = 73513-6) 12.5 12.0-16.0 [facility] HospitalHematocrit2018-06-11 07:49:00* Test Item Value Reference Range Interpretation Comments Hematocrit (test code = 4544-3) 38.4 34.2-44.1 University HospitalMean Corpuscular Icdjmw0951-95-67 07:49:00* Test Item Value Reference Range Interpretation Comments Mean Corpuscular Volume (test code = 787-2) 91.2 81-99 [facility] HospitalMean Corpuscular Ypwrqidpvs5234-19-02 07:49:00* Test Item Value Reference Range Interpretation Comments Mean Corpuscular Hemoglobin (test code = 785-6) 29.7 28-32 [facility] HospitalMean Corpuscular Hemoglobin Concent 2017-08-11 07:49:00* Test Item Value Reference Range Interpretation Comments Mean Corpuscular Hemoglobin Concent (test code = 786-4) 32.6 31-35 [facility] HospitalRed Cell Distribution Uorbz1601-00-68 07:49:00* Test Item Value Reference Range Interpretation Comments Red Cell Distribution Width (test code = 14063-0) 15.0 11.7 -14.4 H [facility] HospitalPlatelet Wsqjy0383-96-89 07:49:00* Test Item Value Reference Range Interpretation Comments Platelet Count (test code = 777-3) 310 140-360 [facility] HospitalNeutrophils (%) (Auto)2017-08-11 07:49:00 * Test Item Value Reference Range Interpretation Comments Neutrophils (%) (Auto) (test code = 51502-4) 53.7 38.7-80.0 [facility] HospitalLymphocytes (%) (Auto)2017-08-11 07:49:00 * Test Item Value Reference Range Interpretation Comments Lymphocytes (%) (Auto) (test code = 736-9) 29.4 18.0-39.1 [facility] HospitalMonocytes (%) (Auto)2017-08-11 07:49:00* Test Item Value Reference Range Interpretation Comments Monocytes (%) (Auto) (test code = 5905-5) 10.6 4.4-11.3 [facility] HospitalEosinophils (%) (Auto)2017-08-11 07:49:00 * Test Item Value Reference Range Interpretation Comments Eosinophils (%) (Auto) (test code = 713-8) 5.1 0.0-6.0 [facility] HospitalBasophils (%) (Auto)2017-08-11 07:49:00* Test Item Value Reference Range Interpretation Comments Basophils (%) (Auto) (test code = 706-2) 0.6 0.0-1.0 [facility] HospitalIM GRANULOCYTES %2017-08-11 07:49:00* Test Item Value Reference Range Interpretation Comments IM GRANULOCYTES % (test code = IM GRANULOCYTES %) 0.6 0.0- 1.0 [facility] HospitalNeutrophils # (Auto)2017-08-11 07:49:00* Test Item Value Reference Range Interpretation Comments Neutrophils # (Auto) (test code = 751-8) 3.7 2.1-6.9 [facility] HospitalLymphocytes # (Auto)2017-08-11 07:49:00* Test Item Value Reference Range Interpretation Comments Lymphocytes # (Auto) (test code = 33491-3) 2.0 1.0-3.2 [facility] HospitalMonocytes # (Auto)2017-08-11 07:49:00* Test Item Value Reference Range Interpretation Comments Monocytes # (Auto) (test code = 742-7) 0.7 0.2-0.8 [facility] HospitalEosinophils # (Auto)2017-08-11 07:49:00* Test Item Value Reference Range Interpretation Comments Eosinophils # (Auto) (test code = 711-2) 0.4 0.0-0.4 [facility] HospitalBasophils # (Auto)2017-08-11 07:49:00* Test Item Value Reference Range Interpretation Comments Basophils # (Auto) (test code = 704-7) 0.0 0.0-0.1 [facility] HospitalAbsolute Immature Granulocyte (auto 2017-08-11 07:49:00* Test Item Value Reference Range Interpretation Comments Absolute Immature Granulocyte (auto (eugenio t code = Absolute Immature Granulocyte (auto) 0.04 0-0.1 [facility] HospitalBlood Wfeygfr6034-97-99 04:04:00* Test Item Value Reference Range Interpretation Comments Blood Culture (test code = 30984280) NO GROWTH AFTER 72 HOURS [facility] Centertool Lactoferrin (LAB)2017-08-08 12:20:00* Test Item Value Reference Range Interpretation Comments Stool Lactoferrin (LAB) (test code = 75757-9) POSITIVE NEGATIVE H Testing on stool aspirate specimens is outside report checker claims since specime n type not validated on this assay.[facility] Centertool Lactoferrin (LAB)2017-08-08 12:20:00* Test Item Value Reference Range Interpretation Comments Stool Lactoferrin (LAB) (test code = 04183-7) POSITIVE NEGATIVE H Testing on stool aspirate specimens is outside report checker claims since specime n type not validated on this assay.[facility] Clostridium Difficile Toxin A & U6165-33-25 12:19:00* Test Item Value Reference Range Interpretation Comments Clostridium Difficile Toxin A & B (test code = 927751285) NEGATIVE NEGATIVE Testing on stool aspirate specimens is outside report checker claims since specime n type not validated on this assay.[facility] Clostridium Difficile Toxin A & V7169-06-04 12:19:00* Test Item Value Reference Range Interpretation Comments Clostridium Difficile Toxin A & B (test code = 303265123) NEGATIVE NEGATIVE Testing on stool aspirate specimens is outside report checker claims since specime n type not validated on this assay.[facility] HospitalTotal Jnsohuous5069-57-62 06:09:00* Test Item Value Reference Range Interpretation Comments Total Bilirubin (test code = 1975-2) 0.5 0.2-1.2 [facility] HospitalAspartate Amino Transf (AST/SGOT) 2017-08-08 06:09:00* Test Item Value Reference Range Interpretation Comments Aspartate Amino Transf (AST/SGOT) (test code = Aspartate Amino Transf (AST/SGOT)) 15 5-34 [facility] HospitalAlanine Aminotransferase (ALT/SGPT) 2017-08-08 06:09:00* Test Item Value Reference Range Interpretation Comments Alanine Aminotransferase (ALT/SGPT) (test code = 1742-6) 11 0-55 [facility] HospitalTotal Fqmuine1699-28-78 06:09:00* Test Item Value Reference Range Interpretation Comments Total Protein (test code = 2885-2) 4.9 6.5-8.1 L [facility] HospitalAlbumin2018-06-08 06:09:00* Test Item Value Reference Range Interpretation Comments Albumin (test code = 1751-7) 2.6 3.5-5.0 L [facility] HospitalGlobulin2018-06-08 06:09:00* Test Item Value Reference Range Interpretation Comments Globulin (test code = 43838-6) 2.3 2.3-3.5 [facility] HospitalAlbumin/Globulin Xfzpr5514-42-99 06:09:00 * Test Item Value Reference Range Interpretation Comments Albumin/Globulin Ratio (test code = 1759-0) 1.1 0.8-2.0 [facility] HospitalAlkaline Ywqxxcwsspw8971-65-27 06:09:00* Test Item Value Reference Range Interpretation Comments Alkaline Phosphatase (test code = 6768-6) 54 40-150 [facility] HospitalAmylase Utges6369-85-17 06:09:00* Test Item Value Reference Range Interpretation Comments Amylase Level (test code = 1798-8) 35 25-125 [facility] HospitalLipase2018-06-08 06:09:00* Test Item Value Reference Range Interpretation Comments Lipase (test code = 3040-3) 10 78 [facility] HospitalAmylase Sshvn4919-44-37 06:09:00* Test Item Value Reference Range Interpretation Comments Amylase Level (test code = 1798-8) 35 25-125 [facility] HospitalLipase2018-06-08 06:09:00* Test Item Value Reference Range Interpretation Comments Lipase (test code = 3040-3) 10 78 [facility] HospitalCHEST XRAY LINE FWOJOZAIM6426-59-77 17:12:00 [facility] [address] [place] [address] Patient Name: YG FORTUNE MR #: [id number] : 1940 Age/Sex: 76/F Req #: [id number] Adm Physician: DIEUDONNE WRIGHT MD Ordered by: DIEUDONNE WRIGHT MD Report #: [id number] Location: MED/SURG2 Room/Bed: 207 Procedure: [id number] DX/CHEST XRAY LINE PLACEMENT Exam Date: 08/07/17 Ex am Time: 1850 REPORT STATUS: Signed PROCEDURE: A single AP view of th e chest. COMPARISON: DX, CHEST SINGLE (PORTABLE), 08/31/2014, 7:37. I NDICATIONS: POST RIGHT SIDE PICC LINE FINDINGS: See impression. IMPRESSION: 1. status post placement of right-sided PICC line, with d istal tip projecting in the mid SVC. 2. Lungs are grossly clear. No consoli dation or effusion. 3. Cardiac mediastinal silhouette is unremarkable. Pulmona ry vasculature is normal. 4. No acute bony abnormalities. Fusion hardware i s noted in the lower cervical spine. Tr Hatfield M.D. D ictated by: Tr Hatfield M.D. on 08/07/2017 at 17:12 Electronically approved by: Tr Hatfield M.D. on 08/07/2017 at 17:12 D ictated By: TR HATFIELD MD 11 COPY TO: FANNIE WRIGHT MD Creatine Wwdqbg0802-75-25 09:10:00* Test Item Value Reference Range Interpretation Comments Creatine Kinase (test code = 2157-6) 85 29168 [facility] HospitalCreatine Kinase BQ4463-58-53 09:10:00* Test Item Value Reference Range Interpretation Comments Creatine Kinase MB (test code = 89397-5) 2.60 0-5.0 [facility] HospitalTroponin D0449-42-09 09:10:00* Test Item Value Reference Range Interpretation Comments Troponin I (test code = BYG6507) -0.001 0-0.300 [facility] HospitalUrine Wcwkr9290-28-81 09:06:00* Test Item Value Reference Range Interpretation Comments Urine Color (test code = 5778-6) YELLOW YELLOW [facility] HospitalUrine Mqpcwtc3650-88-41 09:06:00* Test Item Value Reference Range Interpretation Comments Urine Clarity (test code = 90975-6) CLEAR CLEAR [facility] HospitalUrine Specific Tjwliok6789-65-58 09:06:00 * Test Item Value Reference Range Interpretation Comments Urine Specific [place] (test code = 5811-5) 1.025 1.010-1.02 5 [facility] HospitalUrine lR0393-27-18 09:06:00* Test Item Value Reference Range Interpretation Comments Urine pH (test code = 79113-8) 6 5-7 [facility] HospitalUrine Leukocyte Awhduysq8308-68-09 09:06:00* Test Item Value Reference Range Interpretation Comments Urine Leukocyte Esterase (test code = 5799-2) NEGATIVE NEGATIVE [facility] HospitalUrine Lsdpbkb1733-53-04 09:06:00* Test Item Value Reference Range Interpretation Comments Urine Nitrite (test code = 82294-4) NEGATIVE NEGATIVE [facility] HospitalUrine Fupjuib8740-82-48 09:06:00* Test Item Value Reference Range Interpretation Comments Urine Protein (test code = 5804-0) NEGATIVE NEGATIVE [facility] HospitalUrine Glucose (UA)2017-08-07 09:06:00* Test Item Value Reference Range Interpretation Comments Urine Glucose (UA) (test code = 2349-9) NEGATIVE NEGATIVE [facility] HospitalUrine Hsbvfyb4706-68-51 09:06:00* Test Item Value Reference Range Interpretation Comments Urine Ketones (test code = 13154-7) 2+ NEGATIVE H [facility] HospitalUrine Pmrjgnvwhhzt3392-87-62 09:06:00* Test Item Value Reference Range Interpretation Comments Urine Urobilinogen (test code = 66922-2) 0.2 0.2-1 [facility] HospitalUrine Okvgdvqhp3587-82-50 09:06:00* Test Item Value Reference Range Interpretation Comments Urine Bilirubin (test code = 1978-6) NEGATIVE NEGATIVE [facility] HospitalUrine Uocsq5358-91-61 09:06:00* Test Item Value Reference Range Interpretation Comments Urine Blood (test code = 46459-1) NEGATIVE NEGATIVE [facility] HospitalUrine PXN8231-72-95 09:06:00* Test Item Value Reference Range Interpretation Comments Urine WBC (test code = 5821-4) 0-5 0-5 [facility] HospitalUrine XXU0909-78-60 09:06:00* Test Item Value Reference Range Interpretation Comments Urine RBC (test code = 03885-3) NONE 0-5 [facility] HospitalUrine Uesinqpy1040-87-68 09:06:00* Test Item Value Reference Range Interpretation Comments Urine Bacteria (test code = 15851-4) FEW NONE [facility] HospitalUrine Epithelial Xwrof8740-33-80 09:06:00 * Test Item Value Reference Range Interpretation Comments Urine Epithelial Cells (test code = 98574-4) MODERATE NONE [facility] HospitalUrine Hyaline Nweiq7799-93-70 09:06:00* Test Item Value Reference Range Interpretation Comments Urine Hyaline Casts (test code = 72490-6) 0-1 0-1 [facility] HospitalUrine Upkml3607-02-33 09:06:00* Test Item Value Reference Range Interpretation Comments Urine Color (test code = 5778-6) YELLOW YELLOW [facility] HospitalUrine Lngpetq3466-81-15 09:06:00* Test Item Value Reference Range Interpretation Comments Urine Clarity (test code = 15063-8) CLEAR CLEAR [facility] HospitalUrine Specific Ipzbhgc6624-83-67 09:06:00 * Test Item Value Reference Range Interpretation Comments Urine Specific [place] (test code = 5811-5) 1.025 1.010-1.02 5 [facility] HospitalUrine rY2588-10-56 09:06:00* Test Item Value Reference Range Interpretation Comments Urine pH (test code = 11128-9) 6 5-7 [facility] HospitalUrine Leukocyte Utyyqxmv5077-62-06 09:06:00* Test Item Value Reference Range Interpretation Comments Urine Leukocyte Esterase (test code = 5799-2) NEGATIVE NEGATIVE [facility] HospitalUrine Vqqruxl9123-36-04 09:06:00* Test Item Value Reference Range Interpretation Comments Urine Nitrite (test code = 97875-4) NEGATIVE NEGATIVE [facility] HospitalUrine Habtofv3319-25-69 09:06:00* Test Item Value Reference Range Interpretation Comments Urine Protein (test code = 5804-0) NEGATIVE NEGATIVE [facility] Glucose (UA)2017-08-07 09:06:00* Test Item Value Reference Range Interpretation Comments Urine Glucose (UA) (test code = 2349-9) NEGATIVE NEGATIVE [facility] Wflxwnq0389-08-45 09:06:00* Test Item Value Reference Range Interpretation Comments Urine Ketones (test code = 04858-6) 2+ NEGATIVE H [facility] Nedxodnfzwxn5514-13-45 09:06:00* Test Item Value Reference Range Interpretation Comments Urine Urobilinogen (test code = 05944-1) 0.2 0.2-1 [facility] Bzavmqizq1151-64-79 09:06:00* Test Item Value Reference Range Interpretation Comments Urine Bilirubin (test code = 1978-6) NEGATIVE NEGATIVE [facility] HospitalUrine Hppak5263-67-36 09:06:00* Test Item Value Reference Range Interpretation Comments Urine Blood (test code = 85047-5) NEGATIVE NEGATIVE [facility] HospitalUrine UDX8875-88-45 09:06:00* Test Item Value Reference Range Interpretation Comments Urine WBC (test code = 5821-4) 0-5 0-5 [facility] HospitalUrine OUD9596-95-45 09:06:00* Test Item Value Reference Range Interpretation Comments Urine RBC (test code = 20544-3) NONE 0-5 [facility] HospitalUrine Ierulmmq4273-77-09 09:06:00* Test Item Value Reference Range Interpretation Comments Urine Bacteria (test code = 27196-5) FEW NONE [facility] HospitalUrine Epithelial Sdtjf2029-65-08 09:06:00 * Test Item Value Reference Range Interpretation Comments Urine Epithelial Cells (test code = 39733-4) MODERATE NONE [facility] HospitalUrine Hyaline Mjiht0390-29-19 09:06:00* Test Item Value Reference Range Interpretation Comments Urine Hyaline Casts (test code = 52055-5) 0-1 0-1 [facility] HospitalLactic Acid Gdyhj0247-58-70 04:18:00* Test Item Value Reference Range Interpretation Comments Lactic Acid Level (test code = Lactic Acid Level) 11.8 4.5- 19.8 [facility] HospitalCT ABDOMEN/PELVIS GN1012-62-10 00:49:00 [place] [address] Patient Name: YG FORTUNE MR #: [id number] : 1940 Age/Sex: 76/F Req #: [id number] Adm Physician: Ordered by: [employer] Report #: [id number] Location: ER Room/ Bed: Procedure: [id number] CT/CT ABDOMEN/PELVIS WO Ex am Date: 08/06/17 Exam Time: 2344 REPORT STATUS : Signed EXAM: CT Abdomen and Pelvis WITHOUT contrast INDICATION: Small b owel obstruction versus diverticulitis. COMPARISON: None. TECHNIQUE: Abdomen and pelvis were scanned utilizing a multidetector helical scanner from the ross ng base to the pubic symphysis without administration of IV contrast. Absence of intravenous contrast decreases sensitivity for detection of focal lesions a nd vascular pathology. Coronal and sagittal reformations were obtained. Routin e protocol was performed. IV CONTRAST: None. ORAL C ONTRAST: Gastrografin RADIATION DOSE: Total DLP: 257.08 mGy*cm Estimated effective dose: (DLP x 0.015 x size factor) mSv COMPLICATIONS: None FINDINGS: LINES and TUBES: None. LOWER TH ORAX: Moderate sliding hiatal hernia present. HEPATOBILIARY: No focal hepatic lesions. No biliary ductal dilation. GALLBLADDER: No radio-opaque stones or sludge. No wall thickening. SPLEEN: No splenomegaly. PANC REAS: No focal masses or ductal dilatation. ADRENALS: No adrenal nodules KIDNEYS/URETERS: No hydronephrosis. No cystic or solid mass lesions. No stones. GI TRACT: There is diffuse cerebral differential thickening of the mid, distal transverse colon, descending colon to the level of the sigmoid colon compatible with moderate to severe colitis. There are diverticula wit hin the colon without evidence of diverticulitis. Appendix is not clearly ylnne ntified. There is however no fat stranding or adenopathy in the right lower qu adrant to suggest appendicitis. PELVIC ORGANS/BLADDER: Unremarkable. LYMPH NODES: No lymphadenopathy. VESSELS: There is moderate atherosclerotic disease in the aorta and major arterial branches. PERITONEUM / RETROPER ITONEUM: No free air or fluid. BONES: There are degenerative changes in the lumbar spine. SOFT TISSUES: Unremarkable. IMPRESSION: 1. Findings are compatible with left-sided colitis, most likely infectious in the appropriate clinical setting. 2. Sigmoid colon diverticulosis without ev idence of diverticulitis. 3. Moderate to large sliding hiatal hernia. Si gned by: Dr. Cheryl Byrd M.D. on 08/07/2017 12:59 AM Dictated By: CHERYL LANE MD 0 059 Transcribed By: MICAELA on 08/07/17 0059 COPY TO: GIN HELMS
[2019-12-06 14:17] LABS: BASOPHILS # (AUTO) 0.1 (0.0-0.1); BASOPHILS % 0.5 % (0.0-1.0); EOSINOPHILS # (AUTO) 0.1 (0.0-0.4); EOSINOPHILS % 1.5 % (0.0-6.0); HEMATOCRIT 47.4 % (34.2-44.1); HEMOGLOBIN 14.9 g/dL (12.0-16.0); LYMPHOCYTES # (AUTO) 1.9 (1.0-3.2); MEAN CORPUSCULAR HEMOGLOBIN 29.6 pg (28-32); MEAN CORPUSCULAR HGB CONC 31.4 g/dL (31-35); MEAN CORPUSCULAR VOLUME 94.2 fL (81-99); MONOCYTES # (AUTO) 0.7 (0.2-0.8); MONOCYTES % 7.7 % (4.4-11.3); NEUTROPHILS # (AUTO) 6.5 (2.1-6.9); PLATELET COUNT 228 x10e3/uL (140-360); RED BLOOD COUNT 5.03 x10e6/uL (3.6-5.1); RED CELL DISTRIBUTION WIDTH 13.4 % (11.7-14.4)
[2019-12-06 14:21] LABS: BACTERIA,URINE MODERATE /HPF; EPITHELIAL CELLS,URINE FEW /LPF; WBC,URINE (MAN) 0-5 /HPF (0-5)
[2019-12-06 14:22] LABS: CALCIUM OXALATE CRYSTALS,UR MANY (FEW)
[2019-12-06 14:25] LABS: ALBUMIN 3.8 g/dL (3.5-5.0); ALBUMIN/GLOBULIN RATIO 1.1 (0.8-2.0); ANION GAP 16.8 mmol/L (8-16); CALCIUM 9.6 mg/dL (8.4-10.2); CREATININE, SERUM 0.97 mg/dL (0.57-1.11); POTASSIUM 4.8 mmol/L (3.5-5.1)
[2019-12-06] MEDS ORDERED: DIATRIZOATE MEGL/DIATRIZOA SOD 30 ML BTL PO ONE (14:25)
--- NOTE | 2019-12-06 14:40 | NUR ---
Manual BP performed to both arms: R: 141/88 L 146/90. Pt telling this RN that the BP is inaccurate, that the readings on the machine were in incorrect (no values would appear). Pt reports the last admission the nurses bust all her veins. This RN inserted piv with 1 attempt, with no S&S or infiltration.
--- NOTE | 2019-12-06 15:41 | NUR ---
Note hua in EDM - 12/06/19 at [address] Carmona attempting pt place g-tube pt using L arm and legs to push MD away. Pt repeatedly attempting to stop MD from replacing tube. Pt nodded yes when asking if he was in pain. Pt nods yes to saying he understands what I am asking. He nodded made a thumbs down he did not want the peg tube. Pt put a thumbs down for asking if he had family. Pt nodded yes to pain in abdomen.
--- NOTE | 2019-12-06 16:05 | Diagnostic Imaging Report ---
EXAM: CT Abdomen and Pelvis WITH intravenous contrast INDICATION: Abdominal pain COMPARISON: CT abdomen and pelvis of 03/12/2018, CT abdomen and pelvis of 08/06/2017 TECHNIQUE: Abdomen and pelvis were scanned utilizing a multidetector helical scanner from the lung base to the pubic symphysis after administration of IV contrast. Coronal and sagittal reformations were obtained. Routine protocol was performed. Scan was performed during portal venous phase. IV CONTRAST: 100mL of Isovue 370 ORAL CONTRAST: Gastrografin RADIATION DOSE: Total DLP: 263 mGy*cm Dose modulation, iterative reconstruction, and/or weight based adjustment of the mA/kV was utilized to reduce the radiation dose to as low as reasonably achievable. FINDINGS: LOWER THORAX: Large sliding hiatal hernia. HEPATOBILIARY: No focal liver lesion. No biliary ductal dilation. Unremarkable gallbladder. SPLEEN: No splenomegaly. PANCREAS: No focal mass lesion. Unchanged prominence of the pancreatic duct to 6 mm. ADRENALS: No adrenal nodules. KIDNEYS/URETERS: No hydronephrosis, stones, or solid mass lesions. PELVIC ORGANS/BLADDER: Hysterectomy. PERITONEUM / RETROPERITONEUM: No free air or fluid. LYMPH NODES: No lymphadenopathy. VESSELS: Scattered atherosclerotic calcifications of the nonaneurysmal abdominal aorta and major branches.. GI TRACT: No abnormal bowel thickening. No bowel obstruction. Prominent stool burden throughout the distal colon. BONES AND SOFT TISSUES: No acute osseous injury. No suspicious lytic or blastic lesions. Grade 1 retrolisthesis at L2-3 and L3-4 without spondylolysis. Grade 1 anterolisthesis at L4-5. Mild multilevel degenerative changes of the visualized spine with disc space narrowing and small osteophyte formation. IMPRESSION: Prominent stool burden throughout the distal colon may be seen with constipation. Large sliding hiatal hernia. Signed by: Jimmie Palomo MD on 12/06/2019 4:02 PM
[2019-12-06] MEDS ORDERED: MORPHINE SULFATE 2 MG/ML SYR 1ML IV STA (16:11)
--- NOTE | 2019-12-06 16:15 | Emergency Department Note ---
History of Present Illnes History of Present Illness Chief Complaint: Abdominal Complaints History of Present Illness This is a 78 year old female Chief Complaint Comment PATIENT IN FROM HOME WITH COMPLAINTS OF ABDOMINAL PAIN, NAUSEA, AND VOMITING X 2 DAYS. PATIENT STATES THAT SHE HAS HAD DIVERTICULITIS BEFORE, AND THIS FEELS THE SAME. RATES PAIN 9/10, APPEARS UNCOMFORTABLE, RESP EVEN AND NONLABORED, AMBULATORY WITHOUT ASSISTANCE . Historian: Patient Arrival Mode: Car Onset (how long ago): day(s) (2) Location: LLQ ABD Quality: DULL Radiation: Denies non-radiation, Denies back, Denies neck, Denies extremity, Denies abdomen, Denies periumbilical, Denies flank, Denies proximal, Denies distal, Denies other Severity: moderate Onset quality: gradual Duration (how long): day(s) (3) Timing of current episode: constant Progression: waxing and waning Chronicity: new Context: Denies recent illness, Denies recent surgery, Denies recent immobilization, Denies recent travel, Denies trauma/injury, Denies new medications, Denies hx of DVT/PE, Denies non-compliance w/ medications, Denies other Relieving factors: none Exacerbating factors: none Associated symptoms: Reports denies other symptoms Treatments prior to arrival: none Past Medical/Family History Physician Review I have reviewed the patient's past medical and family history. Any updates have been documented here. Past Medical History Recent Fever: No Clinical Suspicion of Infectio: No New/Unexplained Change in Ment: No Past Medical History: Hypothyroidism, Migraines Other Medical History: GOUT ARTHRITIS thyroid migraine Past Surgical History: Hysterectomy Other Surgery: colonoscopy 2 years ago PARTIAL HYSTERECTOMY PATIENT UPSET THAT I AM ASKING THIS QUESTIONS Social History Smoking Cessation: Former smoker Counseling Performed: Yes Alcohol Use: Social Any Illegal Drug Use: No Other Last Tetanus: unk Any Pre-Existing Lines (PICC,: No Review of Systems Review of Systems Constitutional: Reports no symptoms EENTM: Reports no symptoms Cardiovascular: Reports no symptoms Respiratory: Reports no symptoms Gastrointestinal: Reports as per HPI Genitourinary: Reports no symptoms Musculoskeletal: Reports no symptoms Integumentary: Reports no symptoms Neurological: Reports no symptoms Psychological: Reports no symptoms Endocrine: Reports no symptoms Hematological/Lymphatic: Reports no symptoms Physical Exam Related Data Allergies: Coded Allergies: morphine (Verified Allergy, Intermediate, rash, welts, 12/06/19) levofloxacin (Verified Allergy, Mild, rash, 12/06/19) cephalexin (Verified Allergy, Unknown, EARS RING, BAD TASTE IN MOUTH, 12/06/19) metronidazole (Verified Allergy, Unknown, EARS RING, BAD TASTE IN MOUTH, 12/06/19) acetaminophen (Verified Adverse Reaction, Intermediate, RINGING IN EARS, 12/06/19) Triage Vital Signs Vital Signs Date Time Temp Pulse Resp B/P (MAP) Pulse Ox O2 Delivery O2 Flow Rate FiO2 12/06/19 13:03 98.4 65 20 125/54 99 Room Air Vital signs reviewed: Yes Physical Exam CONSTITUTIONAL Constitutional: Present well-developed, Present well-nourished HENT HENT: Present normocephalic, Present atraumatic, Present oropharynx clear/moist, Present nose normal HENT L/R: Present left ext ear normal, Present right ext ear normal; Absent left TM normal, Absent right TM normal, Absent left canal normal, Absent right canal normal, Absent left impacted cerumen, Absent right impacted cerumen, Absent left bulging TM, Absent right bulging TM, Absent other EYES Eyes: Reports PERRL, Reports conjunctivae normal NECK Neck: Present ROM normal; Absent supple, Absent thyromegaly, Absent tracheal deviation, Absent stridor, Absent JVD, Absent cervical adenopathy, Absent carotid bruit, Absent other PULMONARY Pulmonary: Present effort normal, Present breath sounds normal; Absent respiratory distress, Absent rales, Absent rhonchi, Absent chest tenderness, Absent other CARDIOVASCULAR Cardiovascular: Present regular rhythm, Present heart sounds normal, Present capillary refill normal, Present normal rate; Absent irregular rhythm, Absent intact distal pulses, Absent tachycardia, Absent bradycardia, Absent murmur, Absent gallop, Absent friction rub, Absent palpable pulses, Absent strong pulses, Absent weak pulses, Absent LLE edema, Absent RLE edema, Absent other GASTROINTESTINAL Abdominal: Present soft, Present bowel sounds normal, Present tender (LLQ) GENITOURINARY Genitourinary: Present exam deferred SKIN Skin: Present warm, Present dry; Absent erythema, Absent pale, Absent rash, Absent jaundiced, Absent bruising, Absent lesion, Absent other MUSCULOSKELETAL Musculoskeletal: Present ROM normal NEUROLOGICAL Neurological: Present alert, Present oriented x 3, Present no gross motor or sensory deficits PSYCHOLOGICAL Psychological: Present mood/affect normal, Present judgement normal Results Laboratory Result Diagram: 12/06/19 1343 12/06/19 1343 Laboratory Laboratory Tests Test 12/06/19 13:43 12/06/19 13:10 White Blood Count 9.30 x10e3/uL (4.8-10.8) Red Blood Count 5.03 x10e6/uL (3.6-5.1) Hemoglobin 14.9 g/dL (12.0-16.0) Hematocrit 47.4 % (34.2-44.1) Mean Corpuscular Volume 94.2 fL (81-99) Mean Corpuscular Hemoglobin 29.6 pg (28-32) Mean Corpuscular Hemoglobin Concent 31.4 g/dL (31-35) Red Cell Distribution Width 13.4 % (11.7-14.4) Platelet Count 228 x10e3/uL (140-360) Neutrophils (%) (Auto) 70.0 % (38.7-80.0) Lymphocytes (%) (Auto) 20.0 % (18.0-39.1) Monocytes (%) (Auto) 7.7 % (4.4-11.3) Eosinophils (%) (Auto) 1.5 % (0.0-6.0) Basophils (%) (Auto) 0.5 % (0.0-1.0) Neutrophils # (Auto) 6.5 (2.1-6.9) Lymphocytes # (Auto) 1.9 (1.0-3.2) Monocytes # (Auto) 0.7 (0.2-0.8) Eosinophils # (Auto) 0.1 (0.0-0.4) Basophils # (Auto) 0.1 (0.0-0.1) Absolute Immature Granulocyte (auto 0.03 x10e3/uL (0-0.1) Sodium Level 138 mmol/L (136-145) Potassium Level 4.8 mmol/L (3.5-5.1) Chloride Level 102 mmol/L (98-107) Carbon Dioxide Level 24 mmol/L (22-29) Anion Gap 16.8 mmol/L (8-16) Blood Urea Nitrogen 18 mg/dL (7-26) Creatinine 0.97 mg/dL (0.57-1.11) Estimat Glomerular Filtration Rate 56 ML/MIN (60-) BUN/Creatinine Ratio 19 (6-25) Glucose Level 118 mg/dL (74-118) Calcium Level 9.6 mg/dL (8.4-10.2) Total Bilirubin 0.3 mg/dL (0.2-1.2) Aspartate Amino Transf (AST/SGOT) 29 IU/L (5-34) Alanine Aminotransferase (ALT/SGPT) 13 IU/L (0-55) Alkaline Phosphatase 62 IU/L (40-150) Total Protein 7.3 g/dL (6.5-8.1) Albumin 3.8 g/dL (3.5-5.0) Globulin 3.5 g/dL (2.3-3.5) Albumin/Globulin Ratio 1.1 (0.8-2.0) Amylase Level 62 U/L (25-125) Lipase 21 U/L (8-78) Urine Color Yellow (YELLOW) Urine Clarity Sl cloudy (CLEAR) Urine pH 5.5 (5 - 7) Urine Specific [place] 1.025 (1.010-1.025) Urine Protein Negative (NEGATIVE) Urine Glucose (UA) Negative (NEGATIVE) Urine Ketones Negative (NEGATIVE) Urine Blood Negative (NEGATIVE) Urine Nitrite Negative (NEGATIVE) Urine Bilirubin Negative (NEGATIVE) Urine Urobilinogen 0.2 mg/dL (0.2 - 1) Urine Leukocyte Esterase Trace (NEGATIVE) Urine RBC None /HPF (0-5) Urine WBC 0-5 /HPF (0-5) Urine Epithelial Cells Few /LPF (NONE) Urine Calcium Oxalate Crystals Many (FEW) Urine Bacteria Moderate /HPF (NONE) Lab results reviewed: Yes Imaging Imaging results reviewed: Yes Procedures 12 Lead ECG Interpretation ECG Interpretation : ECG: ECG 1 Jointer Operator: Interpreted by ED physician Date: Dec 06, 2019 Time: 11:00 Rhythm: sinus rhythm Rate: normal BPM: 94 QRS axis: left ST segments normal: Yes T waves normal: Yes Assessment & Plan Medical Decision Making MDM DIVERTICULITIS ISCHEMIA Reassessment Reassessment time: 16:14 Reassessment BETTER Assessment & Plan Final Impression: (1) Abdominal pain, left lower quadrant Depart Disposition: HOME, SELF-CARE Last Vital Signs Date Time Temp Pulse Resp B/P (MAP) Pulse Ox O2 Delivery O2 Flow Rate FiO2 12/06/19 16:11 140/ 12/06/19 14:22 67 18 99 Room Air 12/06/19 13:03 98.4 Home Meds Reported Medications Ondansetron Hcl* (ZOFRAN*) 4 Mg Tablet, 4 MG PO Q6H PRN for NAUSEA AND VOMITING 02/04/18 Sulfamethoxazole/Trimethoprim (BACTRIM DS TABLET) 1 Each Tablet, 1 TAB PO BID, #60 TAB 02/04/18 Sumatriptan Succinate (SUMATRIPTAN SUCCINATE) 50 Mg Tablet, 50 MG PO BID PRN for MIGRAINE 01/30/18 Temazepam (TEMAZEPAM) 15 Mg Capsule, 15 MG PO HS 01/30/18 Levothyroxine Sodium (LEVOTHYROXINE SODIUM) 75 Mcg Tablet, 75 MCG PO DAILY 01/30/18 Medications in the ED Ondansetron HCl 4 mg STK-MED ONCE .ROUTE ; Start 12/06/19 at 13:43; Stop 12/06/19 at 13:37; Status DC Sodium Chloride 1,000 ml @ ud STK-MED ONCE .ROUTE ; Start 12/06/19 at 13:43; Stop 12/06/19 at 13:37; Status DC Sodium Chloride 1,000 ml @ 100 mls/hr Q10H IV Last administered on 12/06/19at 13:55; Admin Dose 100 MLS/HR; Start 12/06/19 at 14:00; Stop 01/05/20 at 13:59 Ondansetron HCl 4 mg NOW STAT IV Last administered on 12/06/19at 13:55; Admin Dose 4 MG; Start 12/06/19 at 13:53; Stop 12/06/19 at 13:56; Status DC Sodium Chloride 1,000 ml @ 0 mls/hr Q0M STAT IV ; Start 12/06/19 at 14:02; Stop 12/06/19 at 14:03; Status DC Diatrizoate Meglum/ Diatrizoate Sod 30 ml STK-MED ONCE PO ; Start 12/06/19 at 14:25; Stop 12/06/19 at 14:18; Status DC Morphine Sulfate 2 mg NOW STAT IV ; Start 12/06/19 at 16:11; Stop 12/06/19 at 16:12; Status UNV Ondansetron HCl 4 mg NOW STAT IV ; Start 12/06/19 at 16:11; Stop 12/06/19 at 16:12; Status UNV MOMO HARLEY MD Dec 06, 2019 16:15
[2019-12-06] MEDS ORDERED: KETOROLAC TROMETHAMINE 30 MG/ML VIAL IV STA (16:16)
== END 2019-12-06 17:00 | disposition home or self-care (01) ==
LOC: ER 13:20
DX: R10.32 Left lower quadrant pain (principal); R11.2 Nausea with vomiting, unspecified; E03.9 Hypothyroidism, unspecified; M10.9 Gout, unspecified
CPT/HCPCS: 36415; 74177; 80053; 81001; 82150; 83690; 85025; 99284; J1885; J2405; J7030